=== PATIENT | male | born 1950 | race Caucasian/White ===

== ENCOUNTER 2016-12-16 12:47 | Inpatient (IN) | payer OTHER ==
[2016-12-16] MEDS ORDERED: TYLENOL ONE (13:24)
[2016-12-16] MEDS ORDERED: TYLENOL PO ONE (13:27)
[2016-12-16 13:45] LABS: MANUAL DIFF NEEDED? NO
[2016-12-16 13:48] LABS: BASO% 0.2 % (0.0-0.8); EOS# 0.04 X1000 (0.0-0.7); EOS% 0.4 % (0.0-10.0); HEMATOCRIT 42.4 % (42.0-52.0); HEMOGLOBIN 13.7 g/dL (14.0-18.0); IMM GRAN# 0.02 X1000 (0.0-0.04); IMM GRAN% 0.2 % (0.0-0.5); LYMPH# 0.81 X1000 (1.2-3.4); LYMPH% 8.6 % (20.5-51.1); MCH 28.8 PG (27-31); MCHC 32.3 g/dL (33-37); MCV 89.1 FL (81-99); MONO# 1.49 X1000 (0.11-0.59); MONO% 15.8 % (1.7-9.3); MPV 10.7 FL (7.4-10.4); NEUT% 74.8 % (42.2-75.2); PLT 198 X1000 (130-400); RBC 4.76 XMIL (4.7-6.1)
--- NOTE | 2016-12-16 14:00 | PROVIDER DOCUMENTATION ---
HPI-Respiratory General - General Chief Complaint: Anxiety Stated Complaint: SOB Time Seen by Provider: 12/16/16 14:00 Source: patient, family Allergies/Adverse Reactions: Patient Allergies Allergy/AdvReac Type Severity Reaction Status Date / Time latex Allergy RASH Verified 12/16/16 13:29 levofloxacin [From Levaquin] Allergy HIVES Verified 12/16/16 13:29 Home Medications: Home Medication List Medication Instructions Recorded Confirmed Last Taken Type Amiodarone HCl 200 mg PO DAILY 06/04/15 12/16/16 07/19/16 10:00 History Atorvastatin Calcium 40 mg PO DAILY 06/04/15 12/16/16 07/19/16 10:00 History Furosemide 40 mg PO BID 06/04/15 12/16/16 07/19/16 10:00 History Losartan [Cozaar] 50 mg PO DAILY 06/04/15 12/16/16 07/19/16 10:00 History Spironolactone 25 mg PO DAILY 06/04/15 12/16/16 07/19/16 10:00 History Warfarin Sodium 5 mg PO QHS 06/04/15 12/16/16 07/18/16 History Aspirin 81 mg PO DAILY 07/19/16 12/16/16 07/19/16 10:00 History Hydrocodone/Acetaminophen [[place] 1 each PO 4XDAY 07/19/16 12/16/16 Unknown History 10-325 Tablet] - History of Present Illness-Resp Nature of Presenting Problem: patient is a 66 y/o M that presents to the ER with shortness of breath, fever/ chills, and cough(productive) for about a week. He was seen by pcp 3 weeks ago and given antibiotics. patient was admitted in Jun 2016 for pneumonia. Quality of Pain: reports: pressure, tightness Severity in ED: reports: moderate, severe Onset/Duration: reports: gradual, 1 week ago Timing: reports: still present, constant Context: reports: multiple patients with similar complaints, recent URI Cough Quality/Degree: reports: moderate, severe, dry cough Episode Frequency: chronic episodes Current Respiratory Medication Therapy: Initiated see nurses note Modifying Factors: worse with: exertion, coughing Associated Symptoms: reports: cough, fever/chills, shortness of breath, short of breath, wheezing. denies: flu-like symptoms, lightheadedness, nasal congestion, nasal drainage Similar Symptoms Previously?: Yes Recently seen or treated by another doctor?: Yes Review of Systems - Adult - REVIEW OF SYSTEMS - ADULT Constitutional: reports: chills, fever Eyes: reports: no symptoms reported Ears, Nose, Mouth & Throat: denies: ear pain, sinus problem, throat pain Cardiovascular: denies: chest pain, palpitations Respiratory: reports: cough, shortness of breath, wheezing Gastrointestinal: denies: abdominal pain, diarrhea, difficulty swallowing, nausea, vomiting Genitourinary: reports: no symptoms reported Musculoskeletal: reports: no symptoms reported Integumentary: reports: no symptoms reported Neurological: reports: no symptoms reported Psychiatric: reports: no symptoms reported Endocrine: reports: no symptoms reported Hematologic/Lymphatic: reports: no symptoms reported Allergic/Immunologic: reports: no symptoms reported All Other Systems: Reviewed and Negative Past History - Adult - PAST MEDICAL HISTORY-ADULT Review of Records: reports: Medications Reviewed Cardiovascular: reports: cardiac disease, A-Fib, CHF, HTN, hyperlipidemia, AL, other (AAA) Respiratory: reports: COPD, sleep apnea Gastrointestinal: reports: GERD Other Conditions: reports: cataract/glaucoma - PRIOR SURGERIES/PROCEDURES Surgical/Procedure History: reports: CABG, cholecystectomy, hernia repair, joint replacement (total hip), other (AAA, carotid artery) - IMMUNIZATION STATUS Childhood Immunizations: See Nurse Assessment Flu Vaccine: See Nurse Assessment - SOCIAL HISTORY Smoking: cigarettes, less than 1 pack/day Living Situation: family Physical Exam-General - PHYSICAL EXAM-ADULT Initial Vital Signs Reviewed: Yes - CONSTITUTIONAL General Appearance: alert, mild distress, moderate distress - EYES Eyes: PERRL/EOMI, pink conjunctivae - HEAD, EARS, NOSE, MOUTH & THROAT HENMT: normocephalic/atraumatic, moist mucous membranes, normal ENT inspection - NECK Neck: full range of motion, normal inspection. negative: lymphadenopathy - RESPIRATORY Respiratory: decreased breath sounds, rales, rhonchi, other (tocophnea) - CARDIOVASCULAR Cardiovascular: regular rate, rhythm, no edema, no murmur - GASTROINTESTINAL (ABDOMEN) Abdominal Exam: normal bowel sounds, non tender, soft, no organomegaly, no pulsatile mass - MUSCULOSKELETAL Back Exam: normal inspection, no vertebral tenderness Extremity: no pedal edema, normal capillary refill, other (clubbing of fingers and toes) - SKIN Integumentary: normal color, diaphoresis - NEUROLOGIC Neurologic: grossly normal, no motor/sensory deficits - PSYCHIATRIC Psych/Mental Status: normal mood/affect, normal thought content, normal thought process, oriented x 3 Progress - PLAN OF CARE/RESULTS Progress/Plan/Lab Results: Vital Signs Temp Pulse Resp BP Pulse Ox 12/16/16 16:13 87 20 90/51 90 L 12/16/16 15:48 91 H 24 112/71 90 L 12/16/16 15:04 82 103/58 92 L 12/16/16 14:38 83 28 H 95/43 92 L 12/16/16 14:11 98.9 F 84 23 102/57 94 L 12/16/16 13:02 102.4 F H 98 H 22 112/61 90 L latex Allergy (Verified 12/16/16 13:29) RASH levofloxacin [From Levaquin] Allergy (Verified 12/16/16 13:29) HIVES Amiodarone HCl 200 mg PO DAILY 06/04/15 Atorvastatin Calcium 40 mg PO DAILY 06/04/15 Furosemide 40 mg PO BID 06/04/15 Losartan [Cozaar] 50 mg PO DAILY 06/04/15 Spironolactone 25 mg PO DAILY 06/04/15 Warfarin Sodium 5 mg PO QHS 06/04/15 Aspirin 81 mg PO DAILY 07/19/16 Hydrocodone/Acetaminophen [[place] 10-325 Tablet] 1 each PO 4XDAY 07/19/16 I&O 12/15/16 12/16/16 12/17/16 06:59 06:59 06:59 Output Total 35 Balance -35 Laboratory 12/16/16 12/16/16 12/16/16 14:33 13:41 12:20 WBC RBC Hgb Hct MCV MCH MCHC RDW Std Deviation Plt Count MPV Immature Gran % (Auto) Neut % (Auto) Lymph % (Auto) [place] % (Auto) Eos % (Auto) Baso % (Auto) Immature Gran # (Auto) Neut # (Auto) Lymph # (Auto) [place] # (Auto) Eos # (Auto) Baso # (Auto) PT INR PTT ([place] FS) Sodium Potassium Chloride Carbon Dioxide Anion Gap BUN Creatinine Estimated GFR/1.73 m2 BUN/Creatinine Ratio Glucose Calculated Osmolality Calcium Total Bilirubin AST ALT Alkaline Phosphatase Creatine Kinase Troponin T < 0.010 Total Protein Albumin Globulin Albumin/Globulin Ratio Plasma Lactate 0.9 Urine Source CLEAN CATCH Urine Color YELLOW Urine Turbidity CLEAR Urine pH 6.5 Ur Specific [place] 1.009 Urine Protein TRACE A Ur Glucose (Stick) NEGATIVE Ur Ketones (Stick) NEGATIVE Urine Blood NEGATIVE Urine Nitrite NEGATIVE Urine Bilirubin NEGATIVE Urobilinogen Dipstick NORMAL Urine Leukocytes NEGATIVE Urine WBC (Auto) <10 Urine RBC (Auto) <10 U Epithel Cells (Auto) <10 Urine Bacteria (Auto) NEGATIVE 12/16/16 12/16/16 12/16/16 12:20 12:20 12:20 WBC 9.43 RBC 4.76 Hgb 13.7 L Hct 42.4 MCV 89.1 MCH 28.8 MCHC 32.3 L RDW Std Deviation 15.1 H Plt Count 198 MPV 10.7 H Immature Gran % (Auto) 0.2 Neut % (Auto) 74.8 Lymph % (Auto) 8.6 L [place] % (Auto) 15.8 H Eos % (Auto) 0.4 Baso % (Auto) 0.2 Immature Gran # (Auto) 0.02 Neut # (Auto) 7.05 H Lymph # (Auto) 0.81 L [place] # (Auto) 1.49 H Eos # (Auto) 0.04 Baso # (Auto) 0.02 PT 27.9 H INR 2.61 PTT (Actin FS) 47.6 H Sodium 134 L Potassium 4.1 Chloride 93 L Carbon Dioxide 26 Anion Gap 15 BUN 19 Creatinine 1.2 Estimated GFR/1.73 m2 > 60 BUN/Creatinine Ratio 16 Glucose 100 Calculated Osmolality 271 Calcium 9.2 Total Bilirubin 0.95 AST 28 ALT 28 Alkaline Phosphatase 68 Creatine Kinase 57 Troponin T Total Protein 7.5 Albumin 3.6 Globulin 3.9 Albumin/Globulin Ratio 0.9 Plasma Lactate Urine Source Urine Color Urine Turbidity Urine pH Ur Specific [place] Urine Protein Ur Glucose (Stick) Ur Ketones (Stick) Urine Blood Urine Nitrite Urine Bilirubin Urobilinogen Dipstick Urine Leukocytes Urine WBC (Auto) Urine RBC (Auto) U Epithel Cells (Auto) Urine Bacteria (Auto) Orders Category Date Time Status Cardiac Monitoring DIRECTED Care 12/16/16 13:32 Active IV Insertion ORDERED Care 12/16/16 13:32 Active Notify MD of + Sepsis Screen NOW Care 12/16/16 13:32 Active CHEST-2 VIEWS [RAD] Stat Exams 12/16/16 13:32 Completed BLOOD CULTURE [BLDCUL] Stat Lab 12/16/16 14:03 Received CBC WITH DIFF [HEME] Stat Lab 12/16/16 12:20 Completed CK PROFILE [SP CHEM] Stat Lab 12/16/16 12:20 Completed COMPREHENSIVE METABOLIC PANEL [CHEM] Stat Lab 12/16/16 12:20 Completed LACTATE, PLASMA [CHEM] Stat Lab 12/16/16 14:33 Completed LACTATE, PLASMA [CHEM] Timed Lab 12/16/16 17:35 Ordered PROTIME WITH INR [COAG] Stat Lab 12/16/16 12:20 Completed PTT [COAG] Stat Lab 12/16/16 12:20 Completed TROPONIN T Stat Lab 12/16/16 12:20 Completed URINALYSIS W/POSS RFLX CULT [URINALYSIS] Stat Lab 12/16/16 13:41 Completed Acetaminophen [Tylenol] Med 12/16/16 13:24 Discontinued 1,000 mg .ROUTE .STK-MED ONE Acetaminophen [Tylenol] Med 12/16/16 13:27 Discontinued 1,000 mg PO NOW ONE Piperacil/Tazobact 3.375 gm/Ns [Zosyn 3.375 gm/Ns] 50 Med 12/16/16 14:23 Discontinued ml IV NOW Vancomycin 1 gm/Ns 250 ml Med 12/16/16 14:50 Discontinued IV ONCE Vancomycin 1 gm/Ns 250 ml Med 12/16/16 14:30 Ordered IV Q12H Oxygen Device Stat Oth 12/16/16 13:32 Active EKG [EKG] Stat Ther 12/16/16 13:11 Ordered hospitalist paged for admission - EKG 1 Time of EKG reading by physician:: 13:18 EKG Read and Signed by:: Benjamin Ragland EKG Interpretation (*Must complete 3 of following elements*): Abnormal Rate: 93 Rhythm: NSR [place]: normal QRS: RBB [place] Interval: normal ST Wave: normal Comments: LAE - XRAY 1 XRAY Study: Chest Impression: Abnormal XRAY Interpretation: RLL pneumonia - CONSULTS/PCP/HOSPITALIST Notification #1 *Consult/PCP/Hospitalist*: ( hospitalist) Time Discussed: 16:27 Departure - Departure Time of Disposition Order: 16:27 DIAGNOSIS: COPD exacerbation RLL pneumonia Qualifiers: Pneumonia type: due to unspecified organism Qualified Code(s): J18.1 - Lobar pneumonia, unspecified organism Fever Qualifiers: Fever type: unspecified Qualified Code(s): R50.9 - Fever, unspecified Disposition: ADMITTED INPATIENT 09 Certified Medical Emergency: Emergent Condition: Stable Attestation - Scribe Verification/Attestation Scribe:: Mateus Hills Acting as Scribe for:: Benjamin Ragland Scribe documention review:: This chart was documented by a scribe and accurately reflects the service the provider performed and the decisions made by the provider. Physician Attestation - Physician Attestation I, the provider, attest to the following statement:: Benjamin Ragland Physician documentation Attestation:: This documentation recorded by the scribe accurately reflects the service I personally performed and the decisions made by me.
[2016-12-16] MEDS ORDERED: ZOSYN 3.375 GM/NS 50 ML IV ONE (14:23)
[2016-12-16 14:25] LABS: AGAP 15; ALBUMIN 3.6 g/dL (3.5-5.0); ALKALINE PHOSPHATASE 68 U/L (32-122); BUN 19 mg/dL (8-22); CALCIUM 9.2 mg/dL (8.8-10.2); CHLORIDE 93 mmol/L (98-107); CK PROFILE 57 U/L (24-204); COSMO 271; GOT 28 U/L (10-34); GPT 28 U/L (10-44); POTASSIUM 4.1 mmol/L (3.5-5.1); SODIUM 134 mmol/L (136-145); TCO2 26 mmol/L (25-35); TOTAL BILIRUBIN 0.95 mg/dL (0.20-1.00); TOTAL PROTEIN 7.5 g/dL (6.3-8.3)
[2016-12-16 14:28] LABS: INR 2.61; PROTIME 27.9 Seconds (9.2-11.7); PTT 47.6 Seconds (22.0-36.0)
[2016-12-16] MEDS ORDERED: VANCOMYCIN 1 GM/NS 250 ML IV SCH (14:30)
--- NOTE | 2016-12-16 14:40 | Diag Imaging Result Document ---
PROCEDURE NAME: CHEST-2 VIEWS - 12/16/2016 TWO VIEWS OF THE CHEST: FINDINGS: There are sternotomy wires. There is blunting of the costophrenic angles posteriorly and laterally on the right. There is increased alveolar opacity in the right lower lobe compared to the previous study of 08/14/2016. IMPRESSION: Worsened pneumonia superimposed on COPD and fibrosis.
[2016-12-16 14:46] LABS: URINE CULTURE NEEDED? NO; URINE MICRO REVIEW NEEDED? NO; URINE SOURCE CLEAN CATCH
[2016-12-16] MEDS ORDERED: VANCOMYCIN 1 GM/NS 250 ML IV ONE ×2 (14:50→18:30)
[2016-12-16 14:52] LABS: BILIRUBIN URINE NEGATIVE (NEGATIVE); BLOOD URINE NEGATIVE (NEGATIVE); COLOR YELLOW; GLUCOSE URINE NEGATIVE (NEGATIVE); LEUKOCYTES URINE NEGATIVE (NEGATIVE); NITRITE URINE NEGATIVE (NEGATIVE); PH URINE 6.5; PROTEIN URINE TRACE mg/dL (NEGATIVE); SP GRAVITY URINE 1.009; TURBIDITY URINE CLEAR (CLEAR); UROBILINOGEN URINE NORMAL (NORMAL)
[2016-12-16 14:53] LABS: UR EPITHELIAL CELLS <10 /HPF (<10); URINE BACTERIA NEGATIVE /HPF; URINE RBC <10 /HPF (<10); URINE WBC <10 /HPF (<10)
[2016-12-16] MEDS ORDERED: ZOFRAN IV PRN (16:44)
[2016-12-16] MEDS ORDERED: TYLENOL PO PRN (16:44)
[2016-12-16] MEDS ORDERED: NS 1,000 ML IV SCH (16:45)
[2016-12-16] MEDS ORDERED: TESSALON PO PRN (16:50)
[2016-12-16] MEDS ORDERED: VANCOMYCIN IV PER PHARMACY MISC SCH (17:00)
[2016-12-16] MEDS ORDERED: NORCO-10 PO SCH (17:00)
[2016-12-16] MEDS ORDERED: MUCOMYST 20% ONE (19:02)
[2016-12-16] MEDS ORDERED: DUONEB (A & A) ONE (19:03)
[2016-12-16] MEDS: MUCOMYST 20% INH SCH (19:30)
[2016-12-16] MEDS: DUONEB (A & A) INH SCH ×2 (19:30→22:44)
[2016-12-16] MEDS: ZOSYN 3.375 GM/NS 50 ML IV SCH (20:33)
--- NOTE | 2016-12-16 20:45 | HISTORY AND PHYSICAL ---
PRIMARY CARE PHYSICIAN: Dr. Rick Jeffery. CHIEF COMPLAINT: Five days of increasing shortness of breath and fever. HISTORY OF PRESENT ILLNESS: Mr. Dumont is a 66-year-old male with a history of COPD, coronary artery disease status post coronary artery bypass graft, atrial fibrillation, chronic diastolic CHF and diabetes mellitus type 2 who presented to the ER today with a chief complaint of fever, chills, increasing shortness of breath and productive cough. The patient reports that over the last week or so he has been feeling very weak and fatigued. The patient reports that he had similar symptoms about 3 weeks ago at which time he saw his primary care physician, Dr. Rick Jeffery and was treated with an oral antibiotic and a steroid injection. The patient states that he felt better for a few days, but then the symptoms returned. The patient denied having any chest pain, headache, dizziness or syncope. The patient reports a productive cough with greenish colored sputum. The patient states that he has also noticed that minimal exertion makes him feel short of breath. The patient states that he used his inhaler for shortness of breath, but that did not help to resolve his symptoms. He has also been taking Coricidin and [id number] cold medicine. He reports that he did receive his flu shot. The patient is not on any inhalers or bronchodilator therapy at home. In the ER, the patient was noted to be febrile with a temperature of a 102.4 degrees, and his O2 saturation was 90% on 3 L nasal cannula upon arrival. A chest x- ray was done that revealed a right lobe pneumonia. While in the ER, the patient had blood cultures done and a sputum Gram stain and culture done. The patient then received a dose of IV vancomycin and Zosyn. PAST MEDICAL HISTORY: 1. COPD. 2. Hypertension. 3. Chronic diastolic congestive heart failure. 4. Atrial fibrillation. 5. Diabetes mellitus type 2. 6. Chronic mesenteric ischemia. 7. Coronary artery disease status post coronary artery bypass graft. 8. Peripheral vascular disease. PAST SURGICAL HISTORY: 1. Cholecystectomy. 2. Umbilical hernia repair. 3. Bilateral hip surgery. 4. Left carotid endarterectomy. 5. Aortofemoral bypass. 6. CABG. FAMILY HISTORY: The patient's mother and father both had coronary artery disease. The patient's father at the age of 76. The patient's mother at the age of 55. ALLERGIES: Latex and Levaquin which cause a rash. SOCIAL HISTORY: The patient is and lives at home with his . The patient states that he does smoke 1 pack a day of cigarettes and has been doing this for 50+ years. He denies any alcohol usage. HOME MEDICATIONS: 1. Warfarin 5 mg p.o. at bedtime. 2. Aldactone 25 mg p.o. daily. 3. Cozaar 50 mg p.o. daily. 4. [place] 10/325, 1 tab oral 4 times a day. 5. Lasix 40 mg p.o. twice a day. 6. Lipitor 40 mg p.o. at bedtime. 7. Aspirin 81 mg p.o. daily. 8. Amiodarone 200 mg p.o. daily. REVIEW OF SYSTEMS: A 12 point review of systems has been done. Please refer to the history of present illness for pertinent positives and negatives. PHYSICAL EXAMINATION: VITAL SIGNS: Temperature 102.4 degrees, blood pressure 112/61, heart rate 98. Respirations 22. O2 saturations 90% on 3 L nasal cannula. GENERAL: This is an elderly male, lying comfortably on the stretcher in no acute distress. HEAD: Normocephalic, atraumatic. Eyes, conjunctivae clear, EOMI, PERRLA. NECK: Supple no JVD. No lymphadenopathy. LUNGS: Coarse breath sounds on the right. Clear to auscultation on the left, no wheezing. No rales. ABDOMEN: Positive bowel sounds. Soft, nontender, nondistended. HEART: S1, S2 normal. Regular rate and rhythm. EXTREMITIES: No edema. No cyanosis. No calf tenderness. Peripheral pulses palpable. NEUROLOGIC: The patient is alert and oriented x3. No focal neurologic deficits noted. LABORATORY: White blood cell count 9.4, hemoglobin 13, hematocrit 42, platelets 198,000. INR 2.6. Sodium 134, potassium 4.1, chloride 93, CO2 26, BUN is 19, creatinine 1.2, glucose 100, albumin 3.6, AST 28. ALT 28. Alkaline phosphatase 68. Troponin less than 0.01. UA negative. IMAGING: Chest x-ray shows a right lower lobe pneumonia. ASSESSMENT AND PLAN: 1. Right lobe pneumonia. We will order blood cultures times 2 plus sputum Gram stain and culture. The patient will be started on broad-spectrum antibiotics plus bronchodilator therapy and incentive spirometry. We will also consult Infectious Disease for further recommendations. We will also order a modified barium swallow to be sure that the patient is not aspirating. 2. Atrial fibrillation. The patient is currently rate controlled. We will continue on warfarin. The patient's International normalized ratio is therapeutic. 3. Hypertension. The patient is on several antihypertensives at this time. Those will be held. 4. Diabetes mellitus type 2. We will start the patient on sliding scale insulin. 5. Dyslipidemia. Continue on Lipitor. 6. Coronary artery disease status post coronary artery bypass graft. Stable. Continue on aspirin, Lipitor and Cozaar. 7. Deep vein thrombosis prophylaxis. The patient is already on warfarin and his international normalized ratio is therapeutic. 8. The plan of care was discussed with the patient and his at the bedside.
[2016-12-16] MEDS ORDERED: LASIX PO SCH (21:00)
[2016-12-16] MEDS: LIPITOR PO SCH (21:57)
[2016-12-16] MEDS ORDERED: CORDARONE PO ONE (22:16)
[2016-12-16] MEDS: COUMADIN PO SCH (22:30)
[2016-12-16] MEDS: NORCO-10 PO PRN (22:30)
--- NOTE | 2016-12-16 22:59 | Diag Imaging Result Document ---
PROCEDURE NAME: CT THORAX W/O CONTRAST - 12/16/2016 STUDY: CT chest without contrast. COMPARISON: Compared to 08/20/2016. There are prominent calcified pleural plaques on the right. These were present on the prior exam. Trace left effusion versus pleural thickening. The heart is not enlarged. Sternal wires are present. Moderate prominent atherosclerosis. No aneurysmal dilatation to the aorta. There is central vascular prominence and there may be underlying prominent hilar lymph nodes. Mildly enlarged mediastinal lymph nodes. There are several calcified lymph nodes in the right hilum and there are scattered calcified granuloma. There are bilateral infiltrates most pronounced in the right upper and lower lobes. [id number] emphysematous changes are similar to the prior study. IMPRESSION: Development of multifocal bilateral pneumonia with pulmonary edema. A preliminary report was given at 9:13 p.m. MTDD
[2016-12-17] MEDS: DUONEB (A & A) INH SCH ×6 (03:36→23:25)
[2016-12-17 05:22] LABS: ALLEN TEST YES; BE 2.1 mmoll (-3.0-3.0); BLOOD TYPE ARTERIAL; DRAW SITE R RADIAL; METHB 1.5 % (0.0-1.5); O2(CT) 16.1 mL/dL (15.0-23.0); PO2(98.6) 60 mmHg (60-100); SAMPLE BLOOD; SAO2 93.3 % (95.0-100.0); THB 12.8 g/dL (11.5-17.4); pH(98.6) 7.35 (7.35-7.45)
--- NOTE | 2016-12-17 05:23 | EKG Report ---
Test Performed on : 12/16/2016 1:18:49 PM Test Reason : SOB Blood Pressure : / mmHG Vent. Rate : 093 BPM Atrial Rate : 093 BPM P-R Int : 174 ms QRS Dur : 146 ms QT Int : 386 ms P-R-T Axes : 045 108 029 degrees QTc Int : 479 ms Normal sinus rhythm. Possible Left atrial enlargement Right bundle branch block Abnormal ECG When compared with ECG of 18-FEB-2016 06:20, Sinus rhythm. has replaced Atrial fibrillation. Unconfirmed Result
[2016-12-17 05:24] LABS: MODALITY CANNULA
[2016-12-17 05:25] LABS: PCO2(98.6) 52 mmHg (35-45)
[2016-12-17] MEDS: ZOSYN 3.375 GM/NS 50 ML IV SCH ×4 (05:59→23:36)
[2016-12-17 06:49] LABS: MANUAL DIFF NEEDED? NO
[2016-12-17 06:56] LABS: BASO% 0.3 % (0.0-0.8); EOS# 0.07 X1000 (0.0-0.7); EOS% 0.9 % (0.0-10.0); HEMOGLOBIN 12.8 g/dL (14.0-18.0); LYMPH# 0.85 X1000 (1.2-3.4); LYMPH% 11.5 % (20.5-51.1); MCH 28.9 PG (27-31); MCV 90.3 FL (81-99); MONO# 1.25 X1000 (0.11-0.59); MONO% 16.9 % (1.7-9.3); MPV 9.9 FL (7.4-10.4); NEUT% 70.4 % (42.2-75.2); PLT 165 X1000 (130-400); RBC 4.43 XMIL (4.7-6.1)
[2016-12-17 07:19] LABS: POTASSIUM 4.8 mmol/L (3.5-5.1)
[2016-12-17 07:25] LABS: INR 2.46; PROTIME 26.3 Seconds (9.2-11.7)
[2016-12-17] MEDS: LASIX IV SCH ×2 (07:39→20:54)
[2016-12-17] MEDS: MUCOMYST 20% INH SCH ×2 (07:46→19:25)
[2016-12-17] MEDS ORDERED: NS 2,000 ML ONE (08:55)
[2016-12-17] MEDS ORDERED: HEPARIN ONE (08:55)
[2016-12-17] MEDS ORDERED: COZAAR PO SCH (09:00)
[2016-12-17] MEDS ORDERED: ALDACTONE PO SCH (09:00)
[2016-12-17] MEDS: NORCO-10 PO PRN ×3 (11:00→21:41)
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
--- NOTE | 2016-12-17 13:08 | Diag Imaging Result Document ---
PROCEDURE NAME: BA SWALLOW W/VIDEO SPEECH THER - 12/17/2016 MODIFIED BARIUM SWALLOW WITH THE SPEECH THERAPIST. TECHNIQUE: One hundred and thirty films submitted. Fluoroscopy time is 34 seconds. Total dose is 88 mGy. FINDINGS: The patient swallowed thin barium and barium mixed with pudding without difficulty. No aspiration occurred during the exam. Normal primary and secondary peristalsis. Normal relaxation at the GE junction. There are at least moderate degenerative changes in the mid and lower cervical spine. Mild delay in relaxation of the cricopharyngeus muscle. No other abnormality identified. [facility]
[2016-12-17] MEDS: ASPIRIN PO SCH (14:05)
[2016-12-17] MEDS: CORDARONE PO SCH (14:05)
--- NOTE | 2016-12-17 14:53 | PROGRESS NOTE ---
DATE: 12/17/2016 SUBJECTIVE: The patient is sitting at the edge of the bed, eating a snack. He does report a productive cough but otherwise states that he feels okay. OBJECTIVE: Vital Signs: Temperature 98.2 degrees, blood pressure 129/64, heart rate 93, respirations 23. O2 saturations 93% on 3 L nasal cannula. General: This is an elderly male, sitting at the edge of the bed, in no acute distress. HEENT: Head normocephalic, atraumatic. Heart: S1, S2 normal. Regular rate and rhythm. Lungs: Clear to auscultation. No wheezing. No rale. No rhonchi. Abdomen: Positive bowel sounds. Soft, nontender, nondistended. Extremities: No edema. No cyanosis. No calf tenderness. Neurologic: The patient is alert and oriented x3. LABS: White blood cell count 7.4, hemoglobin 12, hematocrit 40, platelets 165,000. INR 2.4. Sodium 139, potassium 4.8, chloride 97, CO2 29. BUN 19, creatinine 1.3. Glucose 105. ASSESSMENT AND PLAN: 1. Bilateral lobe pneumonia. Continue on Zosyn and vancomycin. Infectious Disease is following. 2. Atrial fibrillation. The patient is currently rate controlled. Continue on amiodarone and warfarin. 3. Hypertension. Controlled. 4. Diabetes mellitus type 2. Continue on sliding scale insulin plus a diabetic diet. 5. Chronic diastolic congestive heart failure. Continue on Lasix. 6. Coronary artery disease, status post coronary artery bypass graft. Aware. Continue on aspirin. 7. Gastrointestinal prophylaxis. Will start the patient on Protonix.
[2016-12-17] MEDS: VANCOMYCIN 1,750 MG in NS 250 ML IV SCH (20:54)
[2016-12-17] MEDS: COUMADIN PO SCH (20:54)
[2016-12-17] MEDS: LIPITOR PO SCH (20:55)
[2016-12-18] MEDS: DUONEB (A & A) INH SCH ×6 (03:15→23:11)
[2016-12-18] MEDS: ZOSYN 3.375 GM/NS 50 ML IV SCH ×3 (06:57→18:19)
[2016-12-18] MEDS: PROTONIX PO SCH (06:58)
[2016-12-18 07:11] LABS: MANUAL DIFF NEEDED? NO
[2016-12-18] MEDS: MUCOMYST 20% INH SCH ×2 (07:20→19:14)
--- NOTE | 2016-12-18 07:39 | Diag Imaging Result Document ---
PROCEDURE NAME: CHEST-PORTABLE - 12/18/2016 ERECT AP PORTABLE CHEST, 12/18/2016 AT 0545 HOURS: FINDINGS: There is pleural thickening and fibrosis bilaterally. There is still some increase in opacity of the right lower lobe and left upper lobe compared to 08/14/2016, however much of the opacity in both lungs is probably due to fibrosis. Compared to 12/16/2016, the lungs are better expanded and there is some slight increase in the density in the left upper lobe but otherwise there has been no significant change. IMPRESSION: Persistent pulmonary edema or pneumonia superimposed on pulmonary and pleural fibrosis.
[2016-12-18 07:48] LABS: INR 2.87; PROTIME 30.7 Seconds (9.2-11.7)
[2016-12-18 07:52] LABS: BASO% 0.3 % (0.0-0.8); EOS# 0.26 X1000 (0.0-0.7); EOS% 3.4 % (0.0-10.0); HEMATOCRIT 39.6 % (42.0-52.0); HEMOGLOBIN 12.8 g/dL (14.0-18.0); IMM GRAN# 0.03 X1000 (0.0-0.04); IMM GRAN% 0.4 % (0.0-0.5); LYMPH# 0.66 X1000 (1.2-3.4); LYMPH% 8.6 % (20.5-51.1); MCH 28.8 PG (27-31); MCHC 32.3 g/dL (33-37); MONO# 1.19 X1000 (0.11-0.59); MONO% 15.4 % (1.7-9.3); MPV 10.3 FL (7.4-10.4); NEUT% 71.9 % (42.2-75.2); PLT 189 X1000 (130-400); RBC 4.45 XMIL (4.7-6.1)
[2016-12-18 08:05] LABS: AGAP 14; BUN 16 mg/dL (8-22); CALCIUM 8.9 mg/dL (8.8-10.2); CHLORIDE 95 mmol/L (98-107); COSMO 275; POTASSIUM 3.5 mmol/L (3.5-5.1); SODIUM 137 mmol/L (136-145); TCO2 28 mmol/L (25-35)
--- NOTE | 2016-12-18 09:35 | PROGRESS NOTE ---
DATE: 12/18/2016 PRESENT ILLNESS: The patient is admitted to the hospital with pneumonia. MEDICATIONS: The patient currently is on a combination of vancomycin and Zosyn. PHYSICAL EXAMINATION: Vital Signs: Temperature is 98.1 degrees, pulse 84, respirations 22, blood pressure 130/68. General: This is an ill-appearing, elderly male. He does seem to be in a little bit of respiratory distress. Lungs: Clear to auscultation. Cardiovascular: Regular heart rate. Abdomen: Soft and nontender. LAB AND X-RAY STUDIES: There is no new CBC or BMP for today. Patient's immunoglobulin A and immunoglobulin G levels are within normal limits. A barium swallow done yesterday showed no evidence of aspiration. ASSESSMENT AND PLAN: The patient has chronic obstructive pulmonary disease and is admitted with pneumonia, which is predisposed to by his chronic obstructive pulmonary disease. He does not aspirate any he does not have an immune deficiency. My plan would be to continue with his current antibiotics, namely vancomycin and Zosyn pending culture results. COMORBIDITIES: Consist of chronic obstructive pulmonary disease and mesenteric ischemia. Thank you for the consult.
[2016-12-18] MEDS: LASIX IV SCH ×2 (09:43→20:54)
[2016-12-18] MEDS: NORCO-10 PO PRN ×3 (09:44→20:53)
[2016-12-18] MEDS: ASPIRIN PO SCH (09:44)
[2016-12-18] MEDS: CORDARONE PO SCH (09:44)
[2016-12-18] MEDS ORDERED: SORBITOL PO ONE (13:07)
[2016-12-18] MEDS: TESSALON PO SCH ×2 (15:28→18:19)
--- NOTE | 2016-12-18 16:48 | PROGRESS NOTE ---
DATE: 12/18/2016 SUBJECTIVE: The patient complains of constipation and persistent coughing. OBJECTIVE: Vital Signs: Temperature 97.9 degrees, blood pressure 138/66, heart rate 79, respirations 20, O2 saturations 98% on 3 L nasal cannula. General: This is an elderly male, lying in bed, in no acute distress. Head: Normocephalic atraumatic. Heart: S1, S2. Normal. Regular rate and rhythm. Lungs: Clear to auscultation bilaterally. No crackles. No rales. Abdomen: Positive bowel sounds. Soft, nontender, nondistended. Extremities: No edema. No cyanosis. Neurologic: The patient is alert and oriented x3. LABS: White blood cell count 7.7, hemoglobin 12, hematocrit 39, platelets 189,000. INR 2.8. Potassium 3.5, sodium 137, BUN 16, creatinine 1.1, glucose 105, calcium 8.9. ASSESSMENT AND PLAN: 1. Bilateral lobe pneumonia. Continue on Zosyn and vancomycin. 2. Atrial fibrillation. The patient is rate controlled. Continue on amiodarone and warfarin. The patient's INR is therapeutic. 3. Constipation. Will start the patient on scheduled laxatives. 4. Hypertension. Controlled. 5. Diabetes mellitus type 2. Continue on sliding scale insulin. 6. Chronic diastolic congestive heart failure. Stable. Continue on Lasix. 7. Coronary artery disease status post coronary artery bypass graft. Aware. Continue on aspirin. 8. Gastrointestinal prophylaxis. Continue on Protonix. 9. Will consult physical therapy.
[2016-12-18] MEDS: VANCOMYCIN 1,750 MG in NS 250 ML IV SCH (20:53)
[2016-12-18] MEDS: LACTULOSE PO SCH (20:53)
[2016-12-18] MEDS: LIPITOR PO SCH (20:53)
[2016-12-18] MEDS: MIRALAX PO SCH (20:54)
[2016-12-18] MEDS: COUMADIN PO SCH (20:54)
[2016-12-18] MEDS: TUSSIONEX LIQUID PO SCH (20:58)
[2016-12-18] MEDS ORDERED: MELATONIN PO ONE (22:25)
[2016-12-19] MEDS: ZOSYN 3.375 GM/NS 50 ML IV SCH ×4 (01:53→20:03)
[2016-12-19] MEDS: DUONEB (A & A) INH SCH ×6 (03:03→23:10)
[2016-12-19] MEDS: NORCO-10 PO PRN (03:07)
[2016-12-19] MEDS: PROTONIX PO SCH (06:26)
[2016-12-19 06:31] LABS: MANUAL DIFF NEEDED? NO
[2016-12-19 06:51] LABS: INR 2.98; PROTIME 31.9 Seconds (9.2-11.7)
[2016-12-19 06:57] LABS: AGAP 13; BUN 18 mg/dL (8-22); CALCIUM 9.3 mg/dL (8.8-10.2); CHLORIDE 95 mmol/L (98-107); COSMO 277; POTASSIUM 3.7 mmol/L (3.5-5.1); SODIUM 137 mmol/L (136-145); TCO2 29 mmol/L (25-35)
[2016-12-19 07:01] LABS: BASO% 0.2 % (0.0-0.8); EOS# 0.33 X1000 (0.0-0.7); EOS% 4.1 % (0.0-10.0); HEMATOCRIT 44.1 % (42.0-52.0); HEMOGLOBIN 14.1 g/dL (14.0-18.0); LYMPH# 0.61 X1000 (1.2-3.4); LYMPH% 7.6 % (20.5-51.1); MCH 28.4 PG (27-31); MCV 88.9 FL (81-99); MONO# 1.09 X1000 (0.11-0.59); MONO% 13.6 % (1.7-9.3); MPV 10.5 FL (7.4-10.4); NEUT% 74.5 % (42.2-75.2); PLT 238 X1000 (130-400); RBC 4.96 XMIL (4.7-6.1)
[2016-12-19] MEDS: MUCOMYST 20% INH SCH ×2 (07:28→19:44)
[2016-12-19] MEDS: ASPIRIN PO SCH (09:32)
[2016-12-19] MEDS: CORDARONE PO SCH (09:32)
[2016-12-19] MEDS: MIRALAX PO SCH (09:33)
[2016-12-19] MEDS: LACTULOSE PO SCH (09:33)
[2016-12-19] MEDS: TUSSIONEX LIQUID PO SCH (09:33)
[2016-12-19] MEDS: LASIX IV SCH (09:33)
[2016-12-19] MEDS: TESSALON PO SCH (09:33)
--- NOTE | 2016-12-19 10:51 | PROGRESS NOTE ---
DATE: 12/19/2016 PRESENT ILLNESS: The patient is being treated for pneumonia. The patient has developed a swollen abdomen which especially is noticeable this morning. MEDICATIONS: The patient is on vancomycin and Zosyn. PHYSICAL EXAMINATION: Vital Signs: Temperature is 97.6 degrees, pulse 102, respirations 24, blood pressure 138/58. Generally: This is an ill-appearing, elderly male. He is in no acute distress. Lungs: Clear to auscultation. Cardiovascular: Regular heart rate. Abdomen: Swollen. It is not tender. I did not hear any breath sounds. Rectal: I did a digital rectal exam. I did not feel any type of mass or stool impaction. LAB AND X-RAY: CBC today shows a white count of 8040, hemoglobin 14.1, and platelet count 238,000. Creatinine is 1.2. GFR is greater than 60. Sputum is growing a normal varinder. ASSESSMENT AND PLAN: I discussed the patient's case with Dr. Ridley who previously had operated on the patient for bowel obstruction. He looked at the x-ray of the abdomen that had just been done and I told him that I was going to consult him. He wants to have a NG tube put down to low intermittent suction. I discussed this with the patient and his and they are in agreement with the above plan. Hopefully the patient's apparent bowel obstruction will resolve with NG suction. COMORBIDITIES: He has severe COPD. Also, he has had previous operations on his abdomen and he has a lot of adhesions that have formed and possibly the patient's apparent obstruction may be due to one of those adhesions and may require surgery. [facility]
--- NOTE | 2016-12-19 11:33 | Diag Imaging Result Document ---
PROCEDURE NAME: ABDOMEN FLAT/UPRIGHT - 12/19/2016 FLAT AND UPRIGHT RADIOGRAPH OF THE ABDOMEN: COMPARISON: 07/21/2016. FINDINGS: There is a large amount of stool in the colon suggesting fairly severe constipation. There is nothing specific for obstruction. There are nonspecific bowel gas patterns. No large- volume free abdominal gas can be identified. IMPRESSION: Suggestion of fairly significant constipation. Nonspecific abdomen, otherwise.
[2016-12-19] MEDS: DILAUDID IV PRN ×4 (11:56→21:23)
[2016-12-19] MEDS: NS 1,000 ML IV SCH (12:00)
--- NOTE | 2016-12-19 13:02 | CONSULTATION ---
DATE OF CONSULTATION: 12/19/2016 REQUESTING PHYSICIAN/REASON FOR CONSULTATION: Elijah Del Valle MD, consult concerning possible small bowel obstruction versus constipation. HISTORY OF PRESENT ILLNESS: A 66-year-old male, well known to me with a history of COPD, coronary artery disease, atrial fibrillation, chronic diastolic congestive heart failure, diabetes mellitus type 2, and now with pneumonia. I had seen him last year for a small bowel obstruction, which ultimately required exploratory laparotomy. He said in the last couple of days, he has become more distended and has not had a bowel movement. He does have a history of chronic constipation, but it usually resolves on its own. His last bowel movement was recorded yesterday, last passing of gas was at that time too. He denies any abdominal pain, but does feel bloated. He is currently being treated for pneumonia. I was asked to evaluate the patient for opinion. PAST MEDICAL HISTORY: Includes COPD, hypertension, chronic diastolic congestive heart failure, atrial fibrillation, diabetes mellitus, chronic mesenteric ischemia, coronary artery disease, peripheral vascular disease. PAST SURGICAL HISTORY: Includes previous exploratory laparotomy, cholecystectomy, umbilical hernia repair, bilateral hip surgery, left carotid endarterectomy, aortofemoral bypass, coronary artery bypass graft. FAMILY HISTORY: Both parents had coronary artery disease. ALLERGIES: Latex and Levaquin. SOCIAL HISTORY: , smokes 1 pack per day. Denies alcohol. HOME MEDICATIONS: Include Coumadin, Aldactone, Cozaar, Ransom, Lasix, Lipitor, aspirin, and amiodarone. REVIEW OF SYSTEMS: A full 10-point review of systems is obtained and negative except those specified in the HPI. PHYSICAL EXAMINATION: Vital Signs: The patient is currently afebrile. Temperature 97.6 degrees, pulse is 98, respiratory rate 18, and O2 saturation 94% on 2 liters nasal cannula. General: No acute distress. An alert and interactive male who looks his stated age. HEENT: Normocephalic, atraumatic. Pupils are round, react to light. Mucous membranes moist. Oropharynx benign. Neck: Supple. Trachea midline. Cardiovascular: Regular rate and rhythm. Lungs: Grossly clear. Abdomen: Distended, but soft. Tympanic to percussion. Bowel sounds auscultated. Extremities: Moves all extremities. Neurologic: Grossly intact. Skin: No signs of jaundice. Vascular: All extremities perfused. LABORATORY DATA: Reviewed, white blood cell count within normal limits, hematocrit within normal limits. Electrolytes all appear grossly within normal limits. Abdominal film reviewed, and this appears to be a bowel obstruction versus constipation. ASSESSMENT AND PLAN: A 66-year-old male with recurrent pneumonia and possible bowel obstruction versus constipation. 1. Pneumonia, currently being managed by the primary team. 2. Multiple medical comorbidities, currently being managed by the consultants. 3. Small bowel obstruction versus constipation. At this time, we will place a nasogastric tube. We may try more laxatives or enemas in the next 24 hours if the patient does not seem to improve. At this time, I would like to hold off on any surgical intervention, and we will monitor the patient with you very closely. I appreciate the consultation.
--- NOTE | 2016-12-19 13:26 | Diag Imaging Result Document ---
PROCEDURE NAME: CHEST/ABD TUBE PLACEMENT - 12/19/2016 AP PORTABLE CHEST AND ABDOMEN: INDICATION: For NG tube placement. FINDINGS: There is considerable motion. However, the NG tube tip is probably located at the level of the gastric cardia. IMPRESSION: Suboptimal study. NG tube probably just within the abdomen.
--- NOTE | 2016-12-19 14:33 | Diag Imaging Result Document ---
PROCEDURE NAME: CHEST/ABD TUBE PLACEMENT - 12/19/2016 PORTABLE CHEST AND ABDOMEN: REASON FOR STUDY: NG tube placement. TIME: 1400 hours. FINDINGS: The NG tube is clearly within the abdomen, probably in the fundus of the stomach. IMPRESSION: NG tube in stomach.
--- NOTE | 2016-12-19 15:09 | PROGRESS NOTE ---
DATE: 12/19/2016 SUBJECTIVE: The patient states that he still has not been able to have a bowel movement and has some abdominal discomfort overnight. OBJECTIVE: Vital Signs: Temperature 98.1 degrees, blood pressure 129/67, heart rate 89, respirations 21, and O2 saturations 94% on 2 liters nasal cannula. General: This is an elderly male, lying in bed, in no acute distress. Head: Normocephalic, atraumatic. Heart: S1 and S2, normal. Regular rate and rhythm. Lungs: Clear to auscultation bilaterally. No wheezes, no rales. No rhonchi. Abdomen: Positive bowel sounds. Soft, nontender, nondistended. Extremities: No edema. No cyanosis. No calf tenderness. Neurologic: The patient is alert oriented x3. No focal neurologic deficits noted. LABORATORY DATA: White blood cell count of 8, hemoglobin 14, hematocrit 44, platelets 238,000. INR 2.9. Sodium 137, potassium 3.7, chloride 95, CO2 of 29, BUN 18, creatinine 1.2, glucose 114, calcium 9.3. ASSESSMENT AND PLAN: 1. Pneumonia. Continue on the current intravenous antibiotic regimen as recommend by Dr. Del Valle. The patient has been advised to continue with incentive spirometer. 2. Severe constipation versus a small bowel obstruction. The patient will be assessed by the general surgeon. A nasogastric tube has already been ordered by Dr. Del Valle. We will order an abdominal x-ray to be done tomorrow morning. 3. Atrial fibrillation. The patient is currently rate controlled. The patient's international normalized ratio is therapeutic. 4. Chronic diastolic congestive heart failure, stable. 5. Diabetes mellitus type 2. Continue on sliding scale insulin. 6. Gastrointestinal prophylaxis. Continue on Protonix.
[2016-12-19] MEDS: VANCOMYCIN 1,750 MG in NS 250 ML IV SCH (20:05)
[2016-12-19] MEDS: COUMADIN PO SCH ×2 (20:08→20:09)
[2016-12-20] MEDS: DILAUDID IV PRN ×6 (01:12→23:46)
[2016-12-20] MEDS: ZOSYN 3.375 GM/NS 50 ML IV SCH ×4 (01:50→20:23)
[2016-12-20] MEDS: DUONEB (A & A) INH SCH ×6 (03:41→23:26)
[2016-12-20] MEDS: NS 1,000 ML IV SCH ×2 (04:20→17:08)
[2016-12-20 07:19] LABS: INR 3.21; PROTIME 34.4 Seconds (9.2-11.7)
[2016-12-20] MEDS: MUCOMYST 20% INH SCH ×2 (07:27→19:59)
[2016-12-20 07:31] LABS: CALCIUM 9.6 mg/dL (8.8-10.2); POTASSIUM 4.1 mmol/L (3.5-5.1)
--- NOTE | 2016-12-20 07:37 | PROGRESS NOTE ---
DATE: 12/20/2016 SUBJECTIVE: Patient doing about the same. His abdominal distention appears to be slightly improved. He had NG tube placed yesterday. Otherwise, no new issues. OBJECTIVE: Vital Signs: Patient is currently afebrile. His vital signs have been stable. General: No acute distress. Alert, interactive male looks stated age. HEENT: Normocephalic, atraumatic. Pupils equal, round, and reactive to light. Mucous membranes moist. Oropharynx benign. NG tube in place with gastric contents draining. Neck: Supple. Trachea midline. Cardiovascular: Regular rate and rhythm. Lungs: Grossly clear. Abdomen: Less distended than yesterday. Soft, nontender. Extremities: Moves all extremities. Neurologic: Grossly intact. Skin: No signs of jaundice. Vascular: All extremities perfused. LABORATORY/DIAGNOSTIC DATA: None today. Abdominal film pending. Reviewed films from yesterday. Picture seems more consistent with potentially a constipation-like pattern. ASSESSMENT AND PLAN: Small-bowel obstruction versus constipation. Small bowel obstruction versus constipation: At this time, we will continue with nasogastric tube decompression. Follow up with serial abdominal films and plan on p.r.n. enemas to see if we can encourage the constipation to improve. I would like to continue conservative management. Hold off on any kind of surgical intervention. This was all discussed with the patient. He voiced understanding.
--- NOTE | 2016-12-20 10:29 | Diag Imaging Result Document ---
PROCEDURE NAME: ABDOMEN FLAT/UPRIGHT - 12/20/2016 FLAT AND UPRIGHT ABDOMEN: FINDINGS: There is oral contrast throughout much of the colon including portions of the descending colon. There is gas and some solid stool still in the rectum. There does not appear to have been much progress since the previous study of 12/19/2016. The NG tube has apparently been partially withdrawn with its tip near the cardia of the stomach. IMPRESSION: The possibility of ileus cannot be excluded.
[2016-12-20] MEDS: CORDARONE PO SCH ×2 (11:34→11:43)
[2016-12-20] MEDS: FLEET ENEMA PR PRN (11:58)
--- NOTE | 2016-12-20 16:20 | PROGRESS NOTE ---
DATE: 12/20/2016 SUBJECTIVE: The patient complains of abdominal pain and just generalized aches. He currently has an NG tube in place to low intermittent suction. OBJECTIVE: Vital Signs: Temperature 98.6 degrees, blood pressure 166/71, heart rate 102, respirations 16, O2 saturation 96% on 3 L nasal cannula. General: This is an elderly male, sitting up in bed, in no acute distress. Head: Normocephalic, atraumatic. Heart: S1, S2. Normal. Regular rate and rhythm. Lungs: Clear to auscultation bilaterally. No wheezes, no rales. No rhonchi. Abdomen: Hypoactive bowel sounds. Soft. Distended. Extremities: No edema. No cyanosis. No calf tenderness. Neurologic: The patient is alert and oriented x3. LABS: INR 3.2. Sodium 141, potassium 4.1, chloride 98, CO2 27, BUN 20, creatinine 1.3, glucose 97. ASSESSMENT AND PLAN: 1. Ileus versus small-bowel obstruction. Continue with NG tube decompression. General Surgery is following. 2. Bilateral lobe pneumonia. Continue on Zosyn and vancomycin. Dr. Del Valle is following. 3. Acute kidney injury. Continue on IV fluid hydration. 4. Atrial fibrillation. The patient is currently rate controlled. The patient's INR is 3.2 today. 5. Chronic diastolic congestive heart failure. Stable. 6. Diabetes mellitus type 2. Continue on sliding scale insulin. 7. Gastrointestinal prophylaxis. Continue on IV Protonix.
[2016-12-20] MEDS: VANCOMYCIN 1,750 MG in NS 250 ML IV SCH (20:30)
[2016-12-21] MEDS: DILAUDID IV PRN ×5 (02:35→22:37)
[2016-12-21] MEDS: ZOSYN 3.375 GM/NS 50 ML IV SCH ×4 (02:35→19:28)
[2016-12-21] MEDS: DUONEB (A & A) INH SCH ×6 (03:42→23:05)
[2016-12-21] MEDS: FLEET ENEMA PR PRN (04:18)
[2016-12-21 07:03] LABS: HEMATOCRIT 39.8 % (42.0-52.0); HEMOGLOBIN 12.5 g/dL (14.0-18.0); MCH 28.5 PG (27-31); MCHC 31.4 g/dL (33-37); MCV 90.9 FL (81-99); RBC 4.38 XMIL (4.7-6.1)
[2016-12-21 07:12] LABS: INR 2.75; PROTIME 29.4 Seconds (9.2-11.7)
[2016-12-21 07:17] LABS: AGAP 14; BUN 17 mg/dL (8-22); CALCIUM 8.7 mg/dL (8.8-10.2); CHLORIDE 100 mmol/L (98-107); COSMO 280; POTASSIUM 3.8 mmol/L (3.5-5.1); SODIUM 140 mmol/L (136-145); TCO2 26 mmol/L (25-35)
--- NOTE | 2016-12-21 07:38 | PROGRESS NOTE ---
DATE: 12/21/2016 SUBJECTIVE: The patient accidentally had his NG tube removed. He has had a significant amount of bowel movements after his enema. He is overall feeling better. His distention is less but still present. OBJECTIVE: Vital Signs: Patient is currently afebrile. His vital signs have been stable. General: No acute distress. Alert, interactive male. Looks stated age. HEENT: Normocephalic, atraumatic. Pupils equal, round, reactive to light. Mucous membranes moist. Oropharynx benign. Neck: Supple. Trachea midline. Cardiovascular: Regular rate and rhythm. Lungs: Grossly clear. Abdomen: Less distended from yesterday. Soft and nontender. Extremities: Moves all extremities. Neurologic: Grossly intact. Skin: No signs of jaundice. Vascular: All extremities perfused. LABORATORY: None from today. Yesterday's INR is 3.21. Abdominal film from yesterday reviewed. No significant change. He has x-rays from this morning pending. ASSESSMENT AND PLAN: Small bowel obstruction versus constipation. Small bowel obstruction versus constipation. At this time we will continue p.r.n. enemas. If his abdominal distention continues to improve may consider taking PO the next 24 hours with p.o. laxatives. [facility]
[2016-12-21] MEDS: MUCOMYST 20% INH SCH ×2 (07:45→19:52)
[2016-12-21] MEDS: CORDARONE PO SCH (09:29)
[2016-12-21] MEDS: NS 1,000 ML IV SCH ×2 (12:56→18:04)
[2016-12-21] MEDS: SOLU-MEDROL IV SCH ×2 (13:01→19:28)
[2016-12-21] MEDS: PROTONIX IV SCH ×2 (13:01→22:36)
[2016-12-21] MEDS: SODIUM CHLORIDE 0.9% INJ SCH ×2 (13:01→22:36)
--- NOTE | 2016-12-21 13:32 | PROGRESS NOTE ---
DATE: 12/21/2016 SUBJECTIVE: The patient is sitting at the edge of the bed. He just had a bowel movement. He does complain of shortness of breath with minimal exertion. He denies having any abdominal pain at this time. His nasogastric tube came out overnight. OBJECTIVE: Vital Signs: Temperature 97.8 degrees, blood pressure 100/46, heart rate 90, respirations 18, O2 saturations 95% on room air. General: This is an elderly male, sitting at the edge of the bed, in no acute distress. Head: Normocephalic, atraumatic. Heart: S1, S2 normal. Regular rate and rhythm. Lungs: Diffuse expiratory wheezes in all lung ortega. No crackles. No rales. Abdomen: Positive bowel sounds. Soft. Distended. Extremities: No edema. No cyanosis. No calf tenderness. Neurologic: The patient is alert and oriented x3. LABS: White blood cell count 12, hemoglobin 12, hematocrit 39, platelets 236,000. INR 2.7. Sodium 140, potassium 3.8, chloride 100, CO2 26, BUN 17, creatinine 1, glucose 84. Calcium 8.7. ASSESSMENT AND PLAN: 1. Small bowel obstruction versus severe constipation. The patient is currently on enemas. His nasogastric tube came out overnight. General surgery is following. We will continue on IV fluids for now since the patient is NPO. 2. Pneumonia. Continue on Zosyn and vancomycin as directed by Dr. Del Valle. The patient has also been encouraged to use his incentive spirometer. 3. Chronic obstructive pulmonary disease exacerbation. Given the extensive wheezing, we will start the patient on IV steroids. Continue on bronchodilator therapy and supplemental oxygen. 4. Atrial fibrillation. The patient is currently rate controlled. His INR is therapeutic; however, his Coumadin is on hold because he is NPO. Will transition to Lovenox if the patient's has not been cleared for p.o. intake and his INR becomes subtherapeutic. 5. Gastrointestinal prophylaxis. We will start the patient on IV Protonix. 6. The patient has been encouraged to ambulate with assistance in the hallway.
--- NOTE | 2016-12-21 14:52 | Diag Imaging Result Document ---
PROCEDURE NAME: ABDOMEN FLAT/UPRIGHT - 12/21/2016 FLAT AND UPRIGHT ABDOMEN: FINDINGS: There is some contrast medium present in the colon on the right. There is less small bowel opacification than on 12/20/2016. There is still considerable small bowel dilatation. IMPRESSION: 1. No evidence of obstruction. 2. The possibility of mild ileus cannot be excluded.
[2016-12-21] MEDS: VANCOMYCIN 1,750 MG in NS 250 ML IV SCH (20:49)
[2016-12-22] MEDS: DILAUDID IV PRN ×6 (01:59→21:35)
[2016-12-22] MEDS: ZOSYN 3.375 GM/NS 50 ML IV SCH ×4 (01:59→20:48)
[2016-12-22] MEDS: FLEET ENEMA PR PRN ×2 (03:01→20:46)
[2016-12-22] MEDS: SOLU-MEDROL IV SCH ×3 (03:01→23:52)
[2016-12-22] MEDS: DUONEB (A & A) INH SCH ×6 (05:11→22:46)
[2016-12-22] MEDS: NS 1,000 ML IV SCH (05:39)
--- NOTE | 2016-12-22 06:18 | PROGRESS NOTE ---
DATE: 12/22/2016 SUBJECTIVE: Patient had multiple bowel movements yesterday after enemas. He feels less distended and he does want something to eat. OBJECTIVE: Vital Signs: Patient is currently afebrile. His vital signs have been stable. General Examination: No acute distress. Alert, interactive, male, looks stated age. HEENT: Normocephalic, atraumatic. Pupils equal, round, react to light. Mucous membranes moist. Oropharynx benign. Neck: Supple. Trachea midline. Cardiovascular: Regular rate and rhythm. Lungs: Grossly clear. Abdomen: Less distended from yesterday and soft. Bowel sounds auscultated. Extremities: Moves all extremities. Neurologic: Grossly intact. Skin: No signs of jaundice. Vascular: All extremities perfused. Laboratory: Reviewed from yesterday. Labs from this morning currently pending. ASSESSMENT/PLAN: Small bowel obstruction versus constipation. Small-bowel obstruction versus constipation. At this time, given the less distention and the bowel movements, we will start on a clear liquid diet and MiraLAX. We will continue to monitor the patient with you.
[2016-12-22 07:13] LABS: HEMOGLOBIN 12.7 g/dL (14.0-18.0); MCH 28.3 PG (27-31); MCHC 31.8 g/dL (33-37); MCV 89.1 FL (81-99); MPV 10.1 FL (7.4-10.4); RBC 4.49 XMIL (4.7-6.1)
[2016-12-22 07:17] LABS: INR 3.02; PROTIME 32.4 Seconds (9.2-11.7)
[2016-12-22 07:25] LABS: AGAP 11; BUN 16 mg/dL (8-22); CALCIUM 8.9 mg/dL (8.8-10.2); CHLORIDE 97 mmol/L (98-107); COSMO 272; MAGNESIUM 2.2 mg/dL (1.5-2.7); POTASSIUM 4.4 mmol/L (3.5-5.1); SODIUM 135 mmol/L (136-145); TCO2 27 mmol/L (25-35)
[2016-12-22] MEDS: MUCOMYST 20% INH SCH ×2 (08:05→20:00)
--- NOTE | 2016-12-22 08:07 | Diag Imaging Result Document ---
PROCEDURE NAME: CHEST-2 VIEWS - 12/22/2016 CHEST X-RAY 2 VIEWS, 12/22/2016: COMPARISON: 12/18/2016. FINDINGS: Stable COPD with pulmonary scarring. There is some indistinct interstitial infiltrate diffusely and bilaterally similar to prior. This may represent pulmonary edema or pneumonia. Heart size remains grossly normal. IMPRESSION: No significant change from prior.
--- NOTE | 2016-12-22 08:10 | Diag Imaging Result Document ---
PROCEDURE NAME: ABDOMEN FLAT/UPRIGHT - 12/22/2016 X-RAY ABDOMEN 2 VIEWS, 12/22/2016: COMPARISON: 12/21/2016. FINDINGS: There is worsening appearance of bowel obstruction. There are now some clearly gas- dilated loops of small bowel in the left mid abdomen measuring about 5.4 cm. These were probably present previously but are more distinct on today's exam. There is also constipation. IMPRESSION: Small-bowel obstruction which is more evident on today's exam but is probably similar to prior.
--- NOTE | 2016-12-22 08:54 | PROGRESS NOTE ---
DATE: 12/22/2016 PRESENT ILLNESS: Patient is currently being treated for pneumonia. He has developed a swollen abdomen which could be due to an ileus or possibly due to obstruction from adhesions. MEDICATIONS: The patient is on a combination of vancomycin and Zosyn. He also is receiving steroids. PHYSICAL EXAMINATION: Vital Signs: Temperature is 98.2 degrees, pulse 77, respirations 14, blood pressure 155/76. Generally: This is a chronically ill-appearing, elderly male who is in no acute distress at this time. Lungs: Clear to auscultation. Cardiovascular: Regular heart rate. Abdomen: Slightly swollen but not as swollen as it was last week. The abdomen is not tender. Neurologic: Patient is awake. He can move his extremities. There is no tremor. LAB AND X-RAY: The patient's chest x-ray shows pneumonia and fibrosis. The patient's CBC shows a white count of 7.39, hemoglobin 12.7, and platelet count 285,000. Blood cultures are sterile. Creatinine is 0.9. GFR is greater than 60. Swab for influenza is negative. Sputum is growing out normal varinder. X-ray of the abdomen shows ileus. ASSESSMENT AND PLAN: Dr. Ridley is following the patient for his abdominal swelling with an ileus versus obstruction. The patient appears to be improving and Dr. Ridley has increased the patient's diet to liquids. As regarding the patient's pneumonia, I would suggest continued treatment. The patient is scheduled to go down today for a chest x-ray as well as abdominal x-ray. COMORBIDITIES: Include COPD. He has had surgery on his abdomen and there are thought to be many adhesions in the abdomen.
[2016-12-22] MEDS: MIRALAX PO SCH (09:00)
[2016-12-22] MEDS: CORDARONE PO SCH (09:00)
[2016-12-22] MEDS: PROTONIX IV SCH ×2 (11:57→23:52)
[2016-12-22] MEDS: LACTULOSE PO SCH ×2 (14:45→20:48)
--- NOTE | 2016-12-22 16:32 | PROGRESS NOTE ---
DATE: 12/22/2016 SUBJECTIVE: Patient has no complaints. OBJECTIVE: Vital signs: Blood pressure 125/46, heart rate of 85, respiratory 21, temperature 97.7 degrees, 97% on 2 L. Cardiovascular: Regular rate and rhythm. Pulmonary: Rhonchi diminished at bases. GI: Soft, nontender, nondistended. Bowel sounds are positive. LABORATORY DATA: White count is normal. Hemoglobin and hematocrit 12 and 40, platelets 285,000. Chemistries are intact. PROBLEM LIST: 1. Pneumonia. We will continue empiric antibiotics. He is on vancomycin day 7 and Zosyn day 8. Probably finish those next 7-[address] Del Valle is following. I am going to decrease his steroids. I do not think he still needs those. 2. Paroxysmal atrial fibrillation appears to be rate controlled. His INR is therapeutic. Will repeat that tomorrow. 3. Partial small bowel obstruction. Appears to be resolving. His diet has been advanced. He is on MiraLAX daily. I may give him some lactulose couple doses try to clear him out because it is unclear if this is not just severe constipation. DISCHARGE PLANNING DISPOSITION: Will be I think 1-2 days on him. Will continue to follow.
[2016-12-22] MEDS: VANCOMYCIN 1,750 MG in NS 250 ML IV SCH (21:35)
[2016-12-23] MEDS: DUONEB (A & A) INH SCH ×6 (03:27→23:21)
[2016-12-23] MEDS: ZOSYN 3.375 GM/NS 50 ML IV SCH ×5 (03:42→21:13)
[2016-12-23] MEDS: DILAUDID IV PRN ×5 (03:42→20:58)
[2016-12-23 07:41] LABS: HEMATOCRIT 38.8 % (42.0-52.0); HEMOGLOBIN 12.3 g/dL (14.0-18.0); MCH 28.5 PG (27-31); MCHC 31.7 g/dL (33-37); MCV 89.8 FL (81-99); MPV 10.1 FL (7.4-10.4); RBC 4.32 XMIL (4.7-6.1)
--- NOTE | 2016-12-23 07:47 | PROGRESS NOTE ---
DATE: 12/23/2016 SUBJECTIVE: Patient doing well. Reports bowel movement yesterday. Tolerating clear liquids. No major issues. OBJECTIVE: Vital Signs: The patient is currently afebrile. His vital signs have been stable. General Examination: No acute distress. Alert, interactive, male. Looks stated age. HEENT: Normocephalic, atraumatic. Pupils equal, round, and react to light. Mucous membranes moist. Oropharynx benign. Neck: Supple. Trachea midline. Cardiovascular: Regular rate and rhythm. Lungs: Grossly clear. Abdomen: Continues to be less distended from admission. Bowel sounds auscultated. Extremities: Moves all extremities. Neurologic: Grossly intact. Skin: No signs of jaundice. Vascular: All extremities perfused. Laboratory: Reviewed from yesterday. ASSESSMENT/PLAN: Small bowel obstruction versus chronic constipation. Small-bowel obstruction versus chronic constipation. At this time, we will advance the patient to a full liquid diet. Continue to monitor.
[2016-12-23] MEDS: MUCOMYST 20% INH SCH ×2 (07:50→19:49)
[2016-12-23 08:08] LABS: INR 2.23; PROTIME 23.8 Seconds (9.2-11.7)
[2016-12-23 08:36] LABS: AGAP 15; BUN 17 mg/dL (8-22); CALCIUM 9.2 mg/dL (8.8-10.2); CHLORIDE 106 mmol/L (98-107); COSMO 294; POTASSIUM 4.6 mmol/L (3.5-5.1); SODIUM 146 mmol/L (136-145); TCO2 25 mmol/L (25-35)
[2016-12-23] MEDS: MIRALAX PO SCH (09:01)
[2016-12-23] MEDS: CORDARONE PO SCH (09:02)
[2016-12-23] MEDS: LACTULOSE PO SCH ×2 (09:02→21:00)
--- NOTE | 2016-12-23 09:53 | PROGRESS NOTE ---
DATE: 12/23/2016 HISTORY: The patient has bilateral pneumonia. He also has a swollen abdomen which could be due to an ileus or possibly a bowel obstruction. MEDICATIONS: The is the 7th day of treatment with a combination of vancomycin and Zosyn. Patient also is on steroids. PHYSICAL EXAMINATION: Vital Signs: Temperature is 98.3 degrees, pulse 64, respirations 18, blood pressure 159/72. General: This is a chronically ill-appearing, elderly male. He is in no acute distress. Thorax: Increased AP diameter of the chest. Lungs: Scattered rhonchi bilaterally. Cardiovascular: Regular heart rate. Abdomen: Soft without masses or tenderness. LAB AND X-RAY: Chest x-ray shows bilateral infiltrates which are unchanged. CBC shows a white count of 10,640, hemoglobin 12.3, and platelet count is 265,000. Creatinine is 1.2. GFR is greater than 60. ASSESSMENT AND PLAN: The patient has pneumonia and also either ileus or bowel obstruction. My plan is to continue the patient's antibiotics for another 7 days to complete a 14 day treatment course of presumed pneumonia. COMORBIDITIES: Include COPD and prior abdominal surgeries which would predispose to adhesions forming. The comorbidities include COPD and prior surgery on the abdomen of the patient which could have caused adhesions to form.
[2016-12-23] MEDS: SOLU-MEDROL IV SCH (11:43)
[2016-12-23] MEDS: PROTONIX IV SCH (11:43)
--- NOTE | 2016-12-23 12:28 | PROGRESS NOTE ---
DATE: 12/23/2016 SUBJECTIVE: Patient is currently lying in bed resting with no complaints. Denies nausea or vomiting. Bowel movement this morning that was soft and small. Passing some gas. Tolerating full liquid meals. He also reports just a little bit of results after his enema last night. OBJECTIVE: Vital Signs: Temperature 98.3 degrees, heart rate 64, respiratory rate 14, blood pressure 159/72, O2 saturation 94% on 2L. General: Mr. Dumont is a 66-year- old male who is in no acute distress, able to answer questions appropriately. Cardiovascular: S1 and S2. Regular rate and rhythm. No rubs, gallops, or murmurs. Pulmonary: Bilateral rhonchi, diminished in the bases. No accessory muscle use or work of breathing noted currently on 2L nasal cannula. Gastrointestinal: Abdomen is soft, distended. Tenderness positive in left upper quadrant. LABORATORY DATA: White blood cells 10,000, hemoglobin 12, hematocrit 38, platelet count 265,000. INR 2.23. Sodium 146, potassium 4.6, BUN 17, creatinine is 1.2, glucose 124. IMAGING: Chest x-ray on 12/22/01: Stable COPD with pulmonary scarring, some indistinct interstitial infiltrate diffusely and bilaterally which could represent pulmonary edema or pneumonia. ASSESSMENT AND PLAN: 1. Pneumonia. Will continue with antibiotics. Dr. Del Valle is following. Steroids have been decreased. Continue with aggressive pulmonary toilet and p.r.n. nasal cannula. 2. Paroxysmal atrial fibrillation. Rate is controlled. INR is therapeutic. Continue with Coumadin 5 mg p.o. nightly. 3. Partial small-bowel obstruction. Continues to appear as if it is resolving. He received an enema last night and had some or just a little amount of results from the enema. Continued on lactulose twice daily. He did have a small soft bowel movement this morning. We will continue with MiraLAX daily also. 4. Gastrointestinal prophylaxis. We will continue with Protonix 40 mg IV q.12 hours. 5. Deep venous thrombosis prophylaxis. He is currently on Coumadin. Dictated by SELIN Saucedo for Frandy Garcia MD Addendum: I personally evaluated and examined the patient in conjunction with the MARKETING SERVICES MANAGER and agreed with the assessment and plans. My examination revealed of pedal edema. Will restart him back on his home Lasix. MTDD
[2016-12-23] MEDS: VANCOMYCIN 1,750 MG in NS 250 ML IV SCH (20:59)
[2016-12-23] MEDS: LASIX PO SCH (21:13)
[2016-12-23] MEDS: COUMADIN PO SCH (21:13)
[2016-12-24] MEDS: SODIUM CHLORIDE 0.9% INJ SCH (00:19)
[2016-12-24] MEDS: PROTONIX IV SCH ×2 (00:19→11:51)
[2016-12-24] MEDS: SOLU-MEDROL IV SCH ×2 (00:19→11:50)
[2016-12-24] MEDS: NORCO-10 PO PRN ×2 (00:24→20:45)
[2016-12-24] MEDS: ZOSYN 3.375 GM/NS 50 ML IV SCH ×4 (03:47→20:45)
[2016-12-24] MEDS: DILAUDID IV PRN ×4 (03:47→18:23)
[2016-12-24] MEDS: DUONEB (A & A) INH SCH ×6 (05:31→23:49)
--- NOTE | 2016-12-24 06:40 | PROGRESS NOTE ---
DATE: 12/24/2016 SUBJECTIVE: Patient doing well. Still reports having bowel movements. Tolerating full liquids. No major issues. OBJECTIVE: Vital Signs: Patient is currently afebrile. His vital signs have been stable. General: No acute distress. Alert, interactive, male looks stated age. HEENT: Normocephalic, atraumatic. Pupils equal, round, react to light. Mucous membranes moist. Oropharynx benign. Neck: Supple. Trachea midline. Cardiovascular: Regular rate and rhythm. Lungs: Grossly clear. Abdomen: Mildly to moderately distended but no worse from yesterday. Bowel sounds auscultated. Extremities: Moves all extremities. Neurologic: Grossly intact. Skin: No signs of jaundice. Vascular: All extremities perfused. LABORATORIES: From yesterday reviewed. ASSESSMENT AND PLAN: Small bowel obstruction versus constipation. Small bowel obstruction versus constipation: At this time, will advance the patient to a regular diet. We will continue to monitor. Told the patient to take in p.o. cautiously. Will continue MiraLAX and stool softeners and enemas.
[2016-12-24 07:39] LABS: INR 1.57; PROTIME 16.7 Seconds (9.2-11.7)
[2016-12-24 07:43] LABS: HEMATOCRIT 40.8 % (42.0-52.0); IMM GRAN# 0.02 X1000 (0.0-0.04); IMM GRAN% 0.3 % (0.0-0.5); LYMPH# 0.42 X1000 (1.2-3.4); LYMPH% 6.1 % (20.5-51.1); MANUAL DIFF NEEDED? YES; MCH 28.3 PG (27-31); MCHC 31.9 g/dL (33-37); MCV 88.7 FL (81-99); MONO# 0.13 X1000 (0.11-0.59); MONO% 1.9 % (1.7-9.3); MPV 9.7 FL (7.4-10.4); NEUT% 91.7 % (42.2-75.2); PLT 273 X1000 (130-400)
[2016-12-24] MEDS: MUCOMYST 20% INH SCH ×2 (07:46→20:02)
[2016-12-24 07:56] LABS: AGAP 9; BUN 14 mg/dL (8-22); CALCIUM 8.6 mg/dL (8.8-10.2); CHLORIDE 97 mmol/L (98-107); COSMO 275; MAGNESIUM 2.3 mg/dL (1.5-2.7); POTASSIUM 4.6 mmol/L (3.5-5.1); SODIUM 137 mmol/L (136-145); TCO2 31 mmol/L (25-35)
[2016-12-24 08:16] LABS: LYMPHS 2 % (21-51); MONO 2 % (1-9)
[2016-12-24] MEDS: MIRALAX PO SCH (08:59)
[2016-12-24] MEDS: CORDARONE PO SCH (08:59)
[2016-12-24] MEDS: LACTULOSE PO SCH ×2 (08:59→20:45)
[2016-12-24] MEDS: LASIX PO SCH ×2 (08:59→20:45)
--- NOTE | 2016-12-24 11:28 | PROGRESS NOTE ---
DATE: 12/24/2016 SUBJECTIVE: Mr. Dumont is a 66-year-old male, who is currently in no distress. He was resting comfortably on his left side in bed. He woke easily and answered all questions appropriately. He states he feels much better. No complaints of pain. No complaints of nausea, and is stating that he is ready to go home. Plans are for possible home tomorrow if he tolerates his food diet. OBJECTIVE: Vital Signs: Temperature is 96.9 degrees, heart rate 59, respiratory rate 18, blood pressure 145/69, O2 saturation 97% on 2 L nasal cannula. General: Mr. Dumont is a 66-year-old, male, in no acute distress Cardiovascular: S1, S2. Regular rate and rhythm. No rubs, gallops or murmurs. Pulmonary: Clear to auscultation. Bilateral breath sounds. No expiratory wheezes noted. No accessory muscle use or work of breathing noted. Currently on 2 L nasal cannula with maintained O2 saturations. GI: Soft, nontender, mildly distended , but positive bowel sounds x4. Extremities: No edema noted. +2 dorsalis and radial pulses. LABORATORY DATA: White blood cells 6000, hemoglobin 13, hematocrit 40, platelet count 273. INR 1.57. Sodium 137, potassium 4.6, BUN 14, creatinine is 1.1, glucose 107, calcium 8.6, magnesium 2.3, phosphorus 3.0. IMAGING: None. ASSESSMENT AND PLAN: 1. Pneumonia. Dr. Del Valle is following. Currently on Zosyn and vancomycin. Will repeat chest x- ray tomorrow to evaluate resolution of pneumonia. He is afebrile and white blood cells are normal. 2. Chronic obstructive pulmonary disease exacerbation. Steroids were decreased. Continue with aggressive pulmonary toilet. No expiratory wheezes or work of breathing noted. 3. Paroxysmal atrial fibrillation, rate controlled. INR is lower than therapeutic. He is on Coumadin 5 mg oral nightly. Will repeat INR in the morning. If continues to be low, may need to increase Coumadin. We will resume his home oral Lasix. 4. Partial small-bowel obstruction versus severe constipation. He has had a bowel movement. It is soft and brown now. His diet has been advanced by surgery to a regular diet. If he tolerates a regular diet, he can go home tomorrow. 5. Gastrointestinal prophylaxis. Continue with Protonix. 6. Deep vein thrombosis prophylaxis. He is on Coumadin. Dictated by SELIN Saucedo for Frandy Garcia MD Addendum: I have evaluated and examined the patient in conjunction to the [employer] and agreed with her assessments and plans. Still has a lot of crackle on the right lower lobe. MTDD
--- NOTE | 2016-12-24 16:10 | PROGRESS NOTE ---
DATE: 12/24/2016 PRESENT ILLNESS: The patient has a bilateral pneumonia. He also has a possible bowel obstruction due to ileus or adhesions. MEDICATIONS: This is the 8th day of treatment with a combination of vancomycin and Zosyn. The patient also is receiving steroids. PHYSICAL EXAMINATION: Vital Signs: Temperature is 97.8 degrees, pulse is 60, respirations 18, blood pressure is 180/70. General: This is a somewhat ill-appearing, elderly male. He is in no acute distress. Cardiovascular: Regular heart rate. Lungs: There were scattered bilateral rhonchi. Abdomen: Slightly protuberant but soft and nontender. The patient has been having ice chips and liquids and tolerating them well. LAB AND X-RAY: There is no new x-ray today. The lab shows a CBC with a white count of 6,930, hemoglobin 13, and a platelet count of 273,000. Creatinine is 1.1. GFR is greater than 60. There is no new chest x-ray. ASSESSMENT AND PLAN: The patient has pneumonia. I discussed with the patient and his various treatment options. The patient felt like he was getting over his pneumonia but both he and his would like an oral antibiotic to be taken for a few days. Patient does have a Levaquin allergy. I think it would be reasonable to put the patient on Septra DS 1 b.i.d. for 5 more days. From an infectious disease point of view, I think the patient could go home tomorrow. Hopefully his abdomen will improve and he will be able to be discharged. I told the patient that if he should have any problem to check with me or if his primary care physician needed me I would be available to see the patient. The patient's comorbidities include COPD and adhesions in his abdomen. Patient also continues to smoke cigarettes.
[2016-12-24] MEDS: VANCOMYCIN 1,750 MG in NS 250 ML IV SCH (20:45)
[2016-12-24] MEDS: COUMADIN PO SCH (20:45)
[2016-12-25] MEDS: SODIUM CHLORIDE 0.9% INJ SCH ×2 (01:39→12:34)
[2016-12-25] MEDS: ZOSYN 3.375 GM/NS 50 ML IV SCH ×2 (01:40→09:23)
[2016-12-25] MEDS: DILAUDID IV PRN ×2 (01:40→12:34)
[2016-12-25] MEDS: SOLU-MEDROL IV SCH ×2 (01:40→12:34)
[2016-12-25] MEDS: PROTONIX IV SCH ×2 (01:40→12:34)
[2016-12-25] MEDS: DUONEB (A & A) INH SCH ×3 (03:30→11:22)
--- NOTE | 2016-12-25 06:40 | PROGRESS NOTE ---
DATE: 12/25/2016 SUBJECTIVE: Patient doing well, tolerating his regular diet. Had small bowel movements. Still passing gas. No major issues. OBJECTIVE: Vital Signs: Patient is currently afebrile. His vital signs have been stable. General: No acute distress. Alert, interactive, male looks stated age. HEENT: Normocephalic, atraumatic. Pupils equal, round, reactive to light. Mucous membranes moist. Oropharynx benign. Neck: Supple. Trachea midline. Cardiovascular: Regular rate and rhythm. Lungs: Grossly clear. Abdomen: Essentially unchanged as far as distention goes. Bowel sounds auscultated. Nontender. Extremities: Moves all extremities. Neurologic: Grossly intact. Skin: No signs of jaundice. Vascular: All extremities perfused. ASSESSMENT/PLAN: Small-bowel obstruction versus constipation Small-bowel obstruction versus constipation: At this time, the patient is tolerating a regular diet. Suspect he will have to stay on MiraLAX every day for the rest of his life. At this time, he can potentially be discharged home today but will defer to the hospitalist service.
[2016-12-25 07:26] LABS: HEMOGLOBIN 13.2 g/dL (14.0-18.0); LYMPH% 4.8 % (20.5-51.1); MANUAL DIFF NEEDED? YES; MCH 28.4 PG (27-31); MCHC 32.2 g/dL (33-37); MCV 88.4 FL (81-99); MONO# 0.09 X1000 (0.11-0.59); MONO% 1.1 % (1.7-9.3); MPV 10.2 FL (7.4-10.4); NEUT% 94.1 % (42.2-75.2); PLT 283 X1000 (130-400); RBC 4.64 XMIL (4.7-6.1)
[2016-12-25 07:45] LABS: AGAP 13; ALBUMIN 3.2 g/dL (3.5-5.0); ALKALINE PHOSPHATASE 44 U/L (32-122); BUN 16 mg/dL (8-22); CALCIUM 8.9 mg/dL (8.8-10.2); CHLORIDE 96 mmol/L (98-107); COSMO 280; GOT 12 U/L (10-34); GPT 18 U/L (10-44); MAGNESIUM 2.3 mg/dL (1.5-2.7); POTASSIUM 3.9 mmol/L (3.5-5.1); SODIUM 139 mmol/L (136-145); TCO2 30 mmol/L (25-35); TOTAL BILIRUBIN 0.37 mg/dL (0.20-1.00); TOTAL PROTEIN 6.1 g/dL (6.3-8.3)
[2016-12-25 07:47] LABS: INR 1.48; PROTIME 15.8 Seconds (9.2-11.7)
[2016-12-25 07:59] LABS: LYMPHS 6 % (21-51)
[2016-12-25] MEDS: MUCOMYST 20% INH SCH (08:28)
[2016-12-25] MEDS: MIRALAX PO SCH (09:26)
[2016-12-25] MEDS: LACTULOSE PO SCH (09:26)
[2016-12-25] MEDS: LASIX PO SCH (09:27)
[2016-12-25] MEDS: CORDARONE PO SCH (09:27)
[2016-12-25] MEDS ORDERED: COUMADIN PO SCH (09:38)
[2016-12-25 13:10] VITALS: BP 150/67
--- NOTE | 2016-12-25 17:02 | DISCHARGE SUMMARY ---
ADMISSION DATE: 12/16/2016 DISCHARGE DATE: 12/25/2016 CONSULTATIONS: 1. Dr. Elijah Del Valle with Infectious Disease. 2. Dr. Dipak Ridley with General Surgery URGENT PROCEDURES: Chest CT showed development of multifocal bilateral pneumonia with pulmonary edema. Modified barium swallow: There was no aspiration. Normal primary and secondary peristalsis. Moderate degenerative changes in the mid and lower cervical spine. Mild delay in relaxation of the cricopharyngeus muscle. No other abnormalities identified. Abdominal x-ray suggests denies fairly significant constipation. Followup abdominal x-ray: Possibility of ileus could not be ruled out. Third and final showed a small bowel obstruction which was more evident but similar to prior exam. DISCHARGE DIAGNOSIS: 1. Pneumonia. Patient is being followed by Infectious Disease, discharged home on . 2. Chronic obstructive pulmonary disease exacerbation. Improved. 3. Paroxysmal atrial fibrillation. Rate controlled. Continue with Coumadin. 4. Partial small-bowel obstruction versus severe constipation. Patient has had a bowel movement. His diet was advanced by Surgery to a regular diet. He tolerated that well. HOSPITAL COURSE: Briefly, Mr. Dumont is a 66-year-old male patient with history of COPD, coronary artery disease status post coronary artery bypass graft seen with atrial fibrillation, chronic systolic congestive heart failure, diabetes mellitus type 2 who presented to the ED with a chief complaint of fever, chills, increasing shortness of breath and productive cough. Patient had similar symptoms 3 weeks ago where he was treated by his primary care physician , Dr. Rick Jeffery with antibiotics and steroids. Patient reported a productive cough with greenish colored sputum, shortness of breath with minimal exertion. In the ER, patient was febrile with a temperature of 102.4 degrees. His O2 saturations were 90% on 3 L. Chest x-ray revealed a right lower lobe pneumonia. While in the ED, he did have blood cultures as well as sputum culture done as well as started on Zosyn and vancomycin. Patient was continued on bronchodilators and IV steroids. To make sure the patient was not aspirating, he underwent a modified barium swallow that did not show anything acute. Dr. Ridley was consulted for concern of a possible small bowel obstruction versus constipation. An NG tube was placed for decompression with serial abdominal films and p.r.n. enemas to encourage the constipation to improve and hold off for any surgical intervention. The patient's distention decreased. The patient started having bowel movements. He was started on a clear liquid diet as well as MiraLAX. His nasogastric tube was removed. He was eventually advanced to a regular diet. He was having small bowel movements. Still passing gas. Dr. Ridley feels that the patient needs to stay on MiraLAX permanently. From his standpoint, he felt like he could be discharged home today. The patient was on his 8th day of treatment with a combination of vancomycin and Zosyn for his pneumonia as well as IV steroids. He is being discharged home on p.o. antibiotics. The patient was thoroughly educated on smoking cessation given his comorbidity of COPD and infusions and adhesions in his abdomen. Vital signs at time of discharge, temperature is 97.8 degrees, heart rate 82, respirations 22, blood pressure is 150/67, O2 is 92% on 2 L nasal cannula. DISCHARGE DIET: Regular. DISCHARGE MEDICATIONS: 1. Amiodarone 200 mg p.o. daily. 2. Rosuvastatin calcium 40 mg p.o. daily. 3. Zocor 50 mg p.o. daily. 4. Lasix 40 mg p.o. b.i.d. 5.HCTZ 25 mg p.o. daily. 6. Warfarin sodium 5 mg p.o. at bedtime. 7. Aspirin 81 mg p.o. daily. 8. [place] 10/325 one each p.o. 4 times a day. 9. MiraLAX 17 g p.o. daily. 10. Septra DS 1 each p.o. b.i.d. for the next 5 days. FOLLOWUP: The patient is being discharged home. He is to follow up with Dr. Del Valle as needed as well as his primary care physician, Dr. Rick Jeffery in 1 week. The patient can return to the ED for any worsening of symptoms. DISCHARGE TIME: Greater than 30 minutes. Dictated by SELIN Braga for Frandy Garcia MD Addendum: I personally evaluated and examined the patient in conjunction with the TAX MANAGER and agreed her plans and disposition. He has had a BM this morning. Has a good bs on examination [facility]
== END 2016-12-25 14:04 | disposition home or self-care (01) | DRG 190 ==
LOC: EDBD → EDUNIT# → ED 12:47 → EDIPHOLD 18:34 → 3N 20:12
PROVIDERS: ATTEND Internal Medicine
PROC: 0D9670Z Drainage of Stomach with Drainage Device, Via Natural or Artificial Opening (ICD-10-PCS; principal; 2016-12-19)
DX: J44.0 Chronic obstructive pulmonary disease with (acute) lower respiratory infection (principal); J18.9 Pneumonia, unspecified organism; N17.9 Acute kidney failure, unspecified; K55.1 Chronic vascular disorders of intestine; K56.60 Unspecified intestinal obstruction; I11.0 Hypertensive heart disease with heart failure; I50.32 Chronic diastolic (congestive) heart failure; E11.51 Type 2 diabetes mellitus with diabetic peripheral angiopathy without gangrene; E78.5 Hyperlipidemia, unspecified; I25.10 Atherosclerotic heart disease of native coronary artery without angina pectoris; F17.210 Nicotine dependence, cigarettes, uncomplicated; M19.90 Unspecified osteoarthritis, unspecified site; K59.00 Constipation, unspecified; J44.1 Chronic obstructive pulmonary disease with (acute) exacerbation; I48.0 Paroxysmal atrial fibrillation; Z95.1 Presence of aortocoronary bypass graft; Z79.82 Long term (current) use of aspirin; Z79.899 Other long term (current) drug therapy; Z79.01 Long term (current) use of anticoagulants; Z82.49 Family history of ischemic heart disease and other diseases of the circulatory system; Z80.9 Family history of malignant neoplasm, unspecified; Z83.3 Family history of diabetes mellitus
CPT/HCPCS: 71010; 71020; 71250; 74000; 74020; 74230; 80048; 80053; 80202; 81001; 82550; 82784; 82805; 82948; 83605; 83735; 84100; 84484; 85025; 85027; 85610; 85730; 87040; 87070; 87205; 87804; 93005; 94640; 94760; 94761; 94799; 96365; 96366; 96367; C9113; J1170; J1644; J1940; J2543; J2920; J3370; J7030; J7050; 92611-GN; 97110-GP; 97116-GP; 97530-GP; S0164

== ENCOUNTER 2017-03-16 12:28 | Inpatient (IN) ==
[2017-03-16] MEDS ORDERED: ASPIRIN PO STA (13:04)
[2017-03-16] MEDS ORDERED: DUONEB (A & A) INH ONE (13:06)
--- NOTE | 2017-03-16 13:28 | Diag Imaging Result Doc PS360 ---
EXAM: CHEST-2 VIEWS INDICATION: CP COMPARISON: 12/22/2016 FINDINGS: The lungs are hyperinflated, stable. There are stable calcified pleural plaques at the right lower lung zone and there is stable fibrosis at the lung bases. There is superimposed patchy infiltrate at both lower lung zones that is similar but perhaps not quite as severe as the previous study. There is stable blunting of the right costophrenic angle due to chronic pleural thickening. There are stable CABG changes. Cardiomediastinal silhouette is essentially unchanged. IMPRESSION: COPD and fibrotic changes with apparent superimposed infiltrate at the lower lung zones that is perhaps not quite as severe as the previous study. Electronically signed by Nirav Pires 03/16/2017 1:25 PM
[2017-03-16 13:46] LABS: BASO% 0.1 % (0.0-0.8); HEMATOCRIT 41.3 % (42.0-52.0); LYMPH# 0.36 X1000 (1.2-3.4); LYMPH% 2.6 % (20.5-51.1); MANUAL DIFF NEEDED? NO; MCH 27.8 PG (27-31); MCHC 31.5 g/dL (33-37); MCV 88.4 FL (81-99); MONO% 7.3 % (1.7-9.3); MPV 10.8 FL (7.4-10.4); PLT 256 X1000 (130-400); RBC 4.67 XMIL (4.7-6.1)
[2017-03-16 13:47] LABS: ALBUMIN 3.6 g/dL (3.5-5.0); MAGNESIUM 2.1 mg/dL (1.5-2.7); POTASSIUM 4.2 mmol/L (3.5-5.1); TOTAL BILIRUBIN 0.65 mg/dL (0.20-1.00); TOTAL PROTEIN 7.2 g/dL (6.3-8.3)
[2017-03-16] MEDS ORDERED: TRANDATE PO ONE (14:11)
[2017-03-16 14:21] LABS: INR 7.61; PTT 79.1 Seconds (22.0-36.0)
[2017-03-16] MEDS ORDERED: VITAMIN K 10 MG in NS 50 ML IV ONE (14:41)
[2017-03-16] MEDS ORDERED: APRESOLINE IV PRN (15:24)
[2017-03-16] MEDS ORDERED: VITAMIN K PO ONE (15:29)
--- NOTE | 2017-03-16 15:34 | PROVIDER DOCUMENTATION ---
This chart was entered by Mateus Hills Scribe, acting as scribe for Amada Bales MD. HPI-Respiratory General - General Stated Complaint: SOB, Abnormal labs Time Seen by Provider: 03/16/17 12:51 Source: patient Allergies/Adverse Reactions: Patient Allergies Allergy/AdvReac Type Severity Reaction Status Date / Time latex Allergy RASH Verified 03/16/17 14:02 levofloxacin [From Levaquin] Allergy HIVES Verified 03/16/17 14:02 Home Medications: Home Medication List Medication Instructions Recorded Confirmed Last Taken Type Amiodarone HCl 200 mg PO DAILY 06/04/15 12/16/16 07/19/16 10:00 History Atorvastatin Calcium 40 mg PO DAILY 06/04/15 12/16/16 07/19/16 10:00 History Furosemide 40 mg PO BID 06/04/15 12/16/16 07/19/16 10:00 History Losartan [Cozaar] 50 mg PO DAILY 06/04/15 12/16/16 07/19/16 10:00 History Spironolactone 25 mg PO DAILY 06/04/15 12/16/16 07/19/16 10:00 History Warfarin Sodium 5 mg PO QHS 06/04/15 12/16/16 07/18/16 History Aspirin 81 mg PO DAILY 07/19/16 12/16/16 07/19/16 10:00 History Hydrocodone/Acetaminophen [[place] 1 each PO 4XDAY 07/19/16 12/16/16 Unknown History 10-325 Tablet] Sulfamethoxazole/Tmp D.s. [Septra 1 each PO BID #10 tablet 12/24/16 Unknown Rx Ds] Polyethylene Glycol 3350 [Miralax] 17 gm PO DAILY #0 powder, packet 12/25/16 Unknown Rx - History of Present Illness-Resp Nature of Presenting Problem: patient is a 67 y/o m that presents to the ER with shortness of breath, coughing , and weakness for a few days but got worse yesterday as he returned form [place]. patient has history of COPD and still smokes daily. He denies fever/ chills, chest pain, or edema. Reports having lab work done and having high PT/ INR. He has been on steroids and antibiotics. Quality of Pain: reports: tightness Severity in ED: reports: moderate, severe Onset/Duration: reports: gradual, 2 days ago, 3 days ago Timing: reports: still present, getting worse Context: reports: recent URI Cough Quality/Degree: reports: moderate, dry cough Episode Frequency: occasional episodes (worse when he travels) Current Respiratory Medication Therapy: Initiated see nurses note Modifying Factors: worse with: exertion, coughing Associated Symptoms: reports: cough, shortness of breath, short of breath, wheezing. denies: chest pain/soreness, dizziness, fever/chills, flu-like symptoms, nasal congestion, nasal drainage Similar Symptoms Previously?: Yes Recently seen or treated by another doctor?: Yes Review of Systems - Adult - REVIEW OF SYSTEMS - ADULT Constitutional: denies: chills, fever Eyes: reports: no symptoms reported Ears, Nose, Mouth & Throat: reports: no symptoms reported Cardiovascular: denies: chest pain, orthopnea, palpitations Respiratory: reports: cough, shortness of breath, wheezing Gastrointestinal: denies: abdominal pain, diarrhea, nausea, vomiting Genitourinary: reports: no symptoms reported Musculoskeletal: reports: muscle weakness. denies: back pain, joint pain, neck pain Integumentary: reports: no symptoms reported Neurological: reports: no symptoms reported Psychiatric: reports: no symptoms reported Endocrine: reports: no symptoms reported Hematologic/Lymphatic: reports: no symptoms reported Allergic/Immunologic: reports: no symptoms reported All Other Systems: Reviewed and Negative Past History - Adult - PAST MEDICAL HISTORY-ADULT Review of Records: reports: Old Records Reviewed, Nursing Assessment Review, Medications Reviewed Cardiovascular: reports: cardiac disease, A-Fib, CHF, HTN, hyperlipidemia, DE, other (AAA) Respiratory: reports: COPD, sleep apnea Gastrointestinal: reports: GERD Other Conditions: reports: cataract/glaucoma - PRIOR SURGERIES/PROCEDURES Surgical/Procedure History: reports: CABG, cholecystectomy, hernia repair, joint replacement (total hip), other (AAA, carotid artery) - IMMUNIZATION STATUS Childhood Immunizations: See Nurse Assessment Flu Vaccine: See Nurse Assessment - SOCIAL HISTORY Smoking: cigarettes, less than 1 pack/day Living Situation: family Physical Exam-General - PHYSICAL EXAM-ADULT Initial Vital Signs Reviewed: Yes - CONSTITUTIONAL General Appearance: alert, mild distress, other (ill appearing) - EYES Eyes: PERRL/EOMI, pink conjunctivae - HEAD, EARS, NOSE, MOUTH & THROAT HENMT: normocephalic/atraumatic, moist mucous membranes, normal ENT inspection - NECK Neck: full range of motion, normal inspection - RESPIRATORY Respiratory: no respiratory distress, no accessory muscle use, rales (bilateral lower lobes), rhonchi (bilateral lower lobes), wheezing (bilateral upper lobesw) - CARDIOVASCULAR Cardiovascular: regular rate, rhythm, no edema, no murmur - GASTROINTESTINAL (ABDOMEN) Abdominal Exam: normal bowel sounds, non tender, soft, no organomegaly, no pulsatile mass - MUSCULOSKELETAL Extremity: normal range of motion, normal inspection, no pedal edema - SKIN Integumentary: normal color, warm/dry - NEUROLOGIC Neurologic: grossly normal, no motor/sensory deficits - PSYCHIATRIC Psych/Mental Status: normal mood/affect, normal thought content, normal thought process, oriented x 3 Progress - PLAN OF CARE/RESULTS Progress/Plan/Lab Results: Vital Signs - 8 hr 03/16/17 12:30 03/16/17 12:31 03/16/17 13:21 Temperature 98.0 F Pulse Rate 84 79 Respiratory Rate 24 23 Blood Pressure 192/91 173/88 O2 Sat by Pulse Oximetry 84 L 94 L 93 L 03/16/17 13:25 03/16/17 15:26 Temperature Pulse Rate 66 76 Respiratory Rate 16 19 Blood Pressure 153/66 O2 Sat by Pulse Oximetry 90 L 93 L Laboratory Results - last 24 hr 03/16/17 03/16/17 03/16/17 12:39 12:39 12:39 WBC 13.76 H RBC 4.67 L Hgb 13.0 L Hct 41.3 L MCV 88.4 MCH 27.8 MCHC 31.5 L RDW Std Deviation 14.5 Plt Count 256 MPV 10.8 H Neut % (Auto) 90.0 H Lymph % (Auto) 2.6 L [place] % (Auto) 7.3 Eos % (Auto) 0.0 Baso % (Auto) 0.1 Neut # (Auto) 12.39 H Lymph # (Auto) 0.36 L [place] # (Auto) 1.00 H Eos # (Auto) 0.00 Baso # (Auto) 0.01 PT INR PTT (Actin FS) D-Dimer 0.39 Sodium 134 L Potassium 4.2 Chloride 94 L Carbon Dioxide 28 Anion Gap 12 BUN 33 H Creatinine 1.3 H Estimated GFR/1.73 m2 55 BUN/Creatinine Ratio 25 Glucose 96 Calculated Osmolality 275 Calcium 9.0 Magnesium 2.1 Total Bilirubin 0.65 AST 12 ALT 10 Alkaline Phosphatase 62 Creatine Kinase 53 Troponin T Ety-H-Vqzeohrqbfy Pept Total Protein 7.2 Albumin 3.6 Globulin 3.6 Albumin/Globulin Ratio 1.0 03/16/17 03/16/17 03/16/17 12:39 12:39 12:39 WBC RBC Hgb Hct MCV MCH MCHC RDW Std Deviation Plt Count MPV Neut % (Auto) Lymph % (Auto) [place] % (Auto) Eos % (Auto) Baso % (Auto) Neut # (Auto) Lymph # (Auto) [place] # (Auto) Eos # (Auto) Baso # (Auto) PT 91.0 H INR 7.61 H* PTT (Actin FS) 79.1 H D-Dimer Sodium Potassium Chloride Carbon Dioxide Anion Gap BUN Creatinine Estimated GFR/1.73 m2 BUN/Creatinine Ratio Glucose Calculated Osmolality Calcium Magnesium Total Bilirubin AST ALT Alkaline Phosphatase Creatine Kinase Troponin T < 0.010 [place]-U-Eshpsvcgbwn Pept 1566 H Total Protein Albumin Globulin Albumin/Globulin Ratio Orders Category Date Time Status Cardiac Monitoring DIRECTED Care 03/16/17 13:04 Active Oxygen Therapy- ED Nursing DIRECTED Care 03/16/17 13:04 Active Saline Loc NOW Care 03/16/17 13:04 Active CHEST-2 VIEWS [RAD] Stat Exams 03/16/17 13:04 Completed A1C HGB W EST AVG GLUCOSE [CHEM] Stat Lab 03/16/17 15:05 Ordered ABG [RESP] Routine Lab 03/16/17 15:12 Ordered BLOOD CULTURE [BLDCUL] Stat Lab 03/16/17 13:07 Ordered CBC WITH ELECTRONIC DIFF [HEME] Stat Lab 03/16/17 12:39 Completed CK PROFILE [SP CHEM] Stat Lab 03/16/17 12:39 Completed COMPREHENSIVE METABOLIC PANEL [CHEM] Stat Lab 03/16/17 12:39 Completed D-DIMER [CHEM] Stat Lab 03/16/17 12:39 Completed MAGNESIUM [CHEM] Stat Lab 03/16/17 12:39 Completed PRO B-NATRIURETIC PEPTIDE Stat Lab 03/16/17 12:39 Completed PROTIME WITH INR [COAG] Stat Lab 03/16/17 12:39 Completed PTT [COAG] Stat Lab 03/16/17 12:39 Completed TROPONIN T Stat Lab 03/16/17 12:39 Completed Albuterol 2.5MG/Ipratrop 0.5MG [Duoneb (A & A)] Med 03/16/17 13:06 Discontinued 3 ml INH NOW ONE Aspirin Med 03/16/17 13:04 Discontinued 325 mg PO STAT STA Azithromycin 500 mg/Ns [Zithromax 500 mg/Ns] Med 03/16/17 14:45 Active 500 mg in 250 ml IV Q24H CefTRIAXONE 1 GM/NS [Rocephin 1 gm/Ns] Med 03/16/17 14:45 Active 1 gm in 50 ml IV Q24H Hydralazine [Apresoline] Med 03/16/17 15:24 Active 10 mg IV Q4H PRN PRN Labetalol [Trandate] Med 03/16/17 14:11 Discontinued 100 mg PO NOW ONE Phytonadione [Vitamin K] 10 mg Med 03/16/17 14:41 Discontinued 0.9% Sodium Chloride Inj [Ns] 50 ml IV NOW Aerosol Treatments Routine Oth 03/16/17 13:07 Completed Aerosol Treatments Stat Oth 03/16/17 13:07 Completed EKG [EKG] Stat Ther 03/16/17 13:04 Ordered Transfer/Admit Order [TRANSFER] Routine Transfer 03/16/17 15:05 Ordered pt's o2 saturation dropped to 88% on 3lpnc during exam Result Diagrams: 03/16/17 12:39 03/16/17 12:39 - EKG 1 Time of EKG reading by physician:: 12:50 EKG Read and Signed by:: Amada Bales EKG Interpretation (*Must complete 3 of following elements*): Abnormal Rate: 82 Rhythm: NSR [place]: normal QRS: RBB HI Interval: normal ST Wave: non-specific ST changes Comments: LAE - XRAY 1 XRAY Study: Chest Impression: Abnormal XRAY Interpretation: copd and fibrosis changes, LLL infiltrate improved but still there - CONSULTS/PCP/HOSPITALIST Notification #1 *Consult/PCP/Hospitalist*: ( rosa maria Braun) Time Discussed: 15:05 Consult Disposition: Admit Departure - Departure Time of Disposition Decision: 14:59 DIAGNOSIS: Lung infiltrate, Dyspnea, Elevated INR, COPD exacerbation Disposition: ADMITTED INPATIENT 09 Certified Medical Emergency: Emergent Condition: Stable - Critical Care Note This patient required my direct & personal management of CC.: No This chart was documented by the indicated scribe, (Mateus Hills, Scribe) and accurately reflects the services I performed and decisions made by me, Amada Bales MD, as attested by the provider's signature.
--- NOTE | 2017-03-16 16:04 | EKG Report ---
Test Performed on : 03/16/2017 12:30:05 PM Test Reason : Chest Pain Blood Pressure : / mmHG Vent. Rate : 082 BPM Atrial Rate : 082 BPM P-R Int : 202 ms QRS Dur : 164 ms QT Int : 424 ms P-R-T Axes : 050 096 023 degrees QTc Int : 495 ms Normal sinus rhythm. Possible Left atrial enlargement Right bundle branch block Septal infarct , age undetermined Abnormal ECG When compared with ECG of 16-DEC-2016 13:18, Septal infarct is now present Unconfirmed Result
[2017-03-16 16:14] LABS: HEMOGLOBIN A1C 5.3 % (4.8-6.0)
[2017-03-16] MEDS: ROCEPHIN 1 GM/NS 1 GM/50 ML IVPB IV SCH (17:29)
[2017-03-16 17:51] LABS: ALLEN TEST YES; BLOOD TYPE ARTERIAL; DRAW SITE R RADIAL; O2(CT) 16.1 mL/dL (15.0-23.0); PCO2(98.6) 46 mmHg (35-45); PO2(98.6) 62 mmHg (60-100); SAMPLE BLOOD; SAO2 94.2 % (95.0-100.0); THB 12.8 g/dL (11.5-17.4)
[2017-03-16 17:54] LABS: MODALITY CANNULA
[2017-03-16] MEDS: ZITHROMAX 500 MG/NS 500 MG/250 ML IVPB IV SCH (18:12)
[2017-03-16] MEDS ORDERED: TYLENOL PO PRN (18:58)
[2017-03-16] MEDS: XOPENEX NEB INH SCH ×2 (19:52→23:43)
[2017-03-16] MEDS: PULMICORT INH SCH (19:52)
[2017-03-16] MEDS: ATROVENT NEB INH SCH ×2 (19:52→23:42)
[2017-03-16] MEDS ORDERED: NORCO-10 PO SCH (21:00)
[2017-03-16 21:47] LABS: URINE CULTURE PL NEEDED? NO; URINE SOURCE CLEAN CATCH
[2017-03-16 21:49] LABS: BILIRUBIN URINE NEGATIVE (NEGATIVE); BLOOD URINE NEGATIVE (NEGATIVE); CLARITY CLEAR (CLEAR); COLOR YELLOW; GLUCOSE URINE NEGATIVE (NEGATIVE); LEUKOCYTES URINE NEGATIVE (NEGATIVE); NITRITE URINE NEGATIVE (NEGATIVE); PROTEIN URINE TRACE mg/dL (NEGATIVE); UROBILINOGEN URINE NORMAL
[2017-03-16 21:50] LABS: URINE EPITHELIAL CELLS <10 /HPF (<10); URINE RBC <10 /HPF (<10); URINE WBC <10 /HPF (<10)
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
[2017-03-17] MEDS ORDERED: DUONEB (A & A) INH PRN (02:28)
[2017-03-17] MEDS ORDERED: NORCO-10 PO PRN (02:47)
[2017-03-17 05:47] LABS: MANUAL DIFF NEEDED? NO
[2017-03-17 06:01] LABS: BASO% 0.1 % (0.0-0.8); EOS# 0.11 X1000 (0.0-0.7); EOS% 0.8 % (0.0-10.0); HEMATOCRIT 37.6 % (42.0-52.0); HEMOGLOBIN 11.7 g/dL (14.0-18.0); IMM GRAN# 0.05 X1000 (0.0-0.04); IMM GRAN% 0.4 % (0.0-0.5); LYMPH# 1.12 X1000 (1.2-3.4); LYMPH% 8.3 % (20.5-51.1); MCH 27.4 PG (27-31); MCHC 31.1 g/dL (33-37); MCV 88.1 FL (81-99); MONO# 1.93 X1000 (0.11-0.59); MONO% 14.3 % (1.7-9.3); MPV 10.1 FL (7.4-10.4); NEUT% 76.1 % (42.2-75.2); PLT 226 X1000 (130-400); RBC 4.27 XMIL (4.7-6.1)
[2017-03-17 06:15] LABS: AGAP 8; ALBUMIN 3.3 g/dL (3.5-5.0); ALKALINE PHOSPHATASE 49 U/L (32-122); BUN 26 mg/dL (8-22); CALCIUM 8.4 mg/dL (8.8-10.2); CHLORIDE 101 mmol/L (98-107); COSMO 279; GOT 11 U/L (10-34); GPT 11 U/L (10-44); POTASSIUM 4.2 mmol/L (3.5-5.1); SODIUM 137 mmol/L (136-145); TCO2 28 mmol/L (25-35); TOTAL PROTEIN 6.3 g/dL (6.3-8.3)
[2017-03-17 06:33] LABS: PROTIME 60.7 Seconds (12.1-15.5)
[2017-03-17 06:34] LABS: INR 7.27 (0.86-1.15)
[2017-03-17] MEDS ORDERED: VITAMIN K PO ONE (06:36)
--- NOTE | 2017-03-17 08:12 | PROGRESS NOTE ---
DATE: 03/17/2017 SUBJECTIVE: Patient notes that he is not been feeling any better but certainly not feeling any worse than last night. Denies any chest pain, palpitations currently. Still states that he is coughing, having some nonproductive cough. Did not sleep well. Still having shortness of breath. Denies any bleeding or bruising. OBJECTIVE: Vital signs: Temperature 98, pulse 80, respiratory rate 18, BP 154/78, saturation 99% on 3 L. General: Patient is awake, alert. He is in no distress. Pleasant to talk with. Neck: Supple. CV: Regular rate. Chest: Clear. Abdomen: Soft. Extremities: Moves all extremities. Neurologic: No changes. LABS: WBC is 13, hemoglobin and hematocrit are 11 and 37. INR 7.2. CMP improved with a BUN of 26, creatinine 1.3, albumin 3.3. ASSESSMENT: 1. Pneumonia. 2. Chronic obstructive pulmonary disease with fibrosis. 3. Hypercoagulable secondary to Coumadin. PLAN: We will stop the patient's Coumadin at the present time. We will continue to follow. We will restart his Lasix but at 40 mg daily. We will hold his aspirin. Continue his amiodarone. Certainly will hold spironolactone today as well as Coumadin until his INR returns back to normal. We will give him vitamin K this morning and follow. cc: Faraz Siddiqui MD
[2017-03-17] MEDS: PULMICORT INH SCH ×2 (08:33→19:18)
[2017-03-17] MEDS: DUONEB (A & A) INH SCH ×5 (08:33→23:05)
[2017-03-17] MEDS: LASIX PO SCH (08:49)
[2017-03-17] MEDS: MIRALAX PO SCH (08:49)
[2017-03-17] MEDS: COZAAR PO SCH (08:49)
[2017-03-17] MEDS: CORDARONE PO SCH (08:49)
[2017-03-17] MEDS: NORCO-10 PO PRN ×2 (08:50→18:42)
[2017-03-17] MEDS ORDERED: LASIX PO SCH (09:00)
[2017-03-17] MEDS ORDERED: CORDARONE PO SCH (09:00)
[2017-03-17] MEDS ORDERED: ASPIRIN PO SCH (09:00)
[2017-03-17] MEDS ORDERED: LIPITOR PO SCH ×2 (09:00→21:00)
[2017-03-17] MEDS: ZITHROMAX 500 MG/NS 500 MG/250 ML IVPB IV SCH (17:27)
[2017-03-17] MEDS: ROCEPHIN 1 GM/NS 1 GM/50 ML IVPB IV SCH (18:42)
[2017-03-17] MEDS: LIPITOR PO SCH (20:14)
[2017-03-17] MEDS: ALDACTONE PO SCH (20:14)
[2017-03-17] MEDS ORDERED: ALDACTONE PO SCH (21:00)
[2017-03-18] MEDS: NORCO-10 PO PRN ×4 (02:37→20:42)
[2017-03-18] MEDS: DUONEB (A & A) INH SCH ×6 (02:44→23:52)
[2017-03-18 06:06] LABS: HEMATOCRIT 37.5 % (42.0-52.0); HEMOGLOBIN 11.3 g/dL (14.0-18.0); MCH 26.8 PG (27-31); MCHC 30.1 g/dL (33-37); MCV 89.1 FL (81-99); MPV 10.5 FL (7.4-10.4); RBC 4.21 XMIL (4.7-6.1)
[2017-03-18 06:18] LABS: AGAP 7; ALBUMIN 3.1 g/dL (3.5-5.0); ALKALINE PHOSPHATASE 55 U/L (32-122); BUN 20 mg/dL (8-22); CALCIUM 8.4 mg/dL (8.8-10.2); CHLORIDE 101 mmol/L (98-107); COSMO 278; GOT 10 U/L (10-34); GPT 12 U/L (10-44); POTASSIUM 3.9 mmol/L (3.5-5.1); SODIUM 138 mmol/L (136-145); TCO2 30 mmol/L (25-35); TOTAL PROTEIN 6.1 g/dL (6.3-8.3)
[2017-03-18 07:41] LABS: INR 1.44 (0.86-1.15); PROTIME 17.8 Seconds (12.1-15.5)
[2017-03-18] MEDS: PULMICORT INH SCH ×2 (07:52→20:14)
[2017-03-18] MEDS ORDERED: ZITHROMAX 500 MG/NS 500 MG/250 ML IVPB IV SCH (07:52)
[2017-03-18] MEDS: CORDARONE PO SCH (08:09)
[2017-03-18] MEDS: COZAAR PO SCH (08:09)
[2017-03-18] MEDS: ASPIRIN EC PO SCH (08:09)
[2017-03-18] MEDS: LASIX PO SCH (08:09)
[2017-03-18] MEDS: MIRALAX PO SCH (08:10)
--- NOTE | 2017-03-18 08:26 | PROGRESS NOTE ---
DATE: 03/18/2017 SUBJECTIVE: Patient notes that he is feeling better. He is still having a cough. In fact, he is having a very productive cough at this point. PHYSICAL EXAMINATION: Vital Signs: Temperature 97, pulse 96, respiratory rate 18, BP 129/59, 165/70, saturation 98% on 3 L. General: Patient awake, alert, oriented. Currently in no real respiratory distress. He is pleasant to talk with. Neck: Supple. Cardiovascular: Regular rate. Chest: Clear. Abdomen: Soft. Extremities: Moves all extremities. Neurologic: No changes. ASSESSMENT: 1. Community-acquired pneumonia. Continue Rocephin. Change to p.o. azithromycin. We will check sputum culture. We will repeat a chest x-ray. 2. Supratherapeutic INR. His most recent INR is 1.4. Therefore, we will restart his home dose of Coumadin at 5 mg daily. We will restart his aspirin. We will use low-dose Lovenox, as he is currently on Coumadin due to atrial fibrillation, but has been in sinus rhythm recently. 3. Atrial fibrillation, stable. 4. Chronic obstructive pulmonary disease, stable. 5. Leukocytosis, resolved. WBC is down to 7. 6. Mwkfv-xy-pgobyam renal failure. BUN and creatinine both are down to 20 and 1.0, which is his baseline. 7. Volume depletion, resolved. 8. Mild protein calorie malnutrition. PLAN: Hopefully, the patient can be discharged home in the next day or 2. We will restart his Coumadin, check his INR in the a.m., recheck a chest x-ray today, change his antibiotics to p.o., and will follow. cc: Faraz Siddiqui MD
[2017-03-18] MEDS: ROCEPHIN 1 GM/NS 1 GM/50 ML IVPB IV SCH (14:29)
[2017-03-18] MEDS ORDERED: ZITHROMAX PO SCH (17:00)
[2017-03-18] MEDS: LIPITOR PO SCH (20:42)
[2017-03-18] MEDS: ALDACTONE PO SCH (20:44)
[2017-03-18] MEDS ORDERED: COUMADIN PO SCH (21:00)
[2017-03-19] MEDS: DUONEB (A & A) INH SCH ×3 (04:26→10:44)
[2017-03-19] MEDS: NORCO-10 PO PRN ×2 (05:26→09:02)
[2017-03-19 06:44] LABS: INR 1.12 (0.86-1.15); PROTIME 14.7 Seconds (12.1-15.5)
[2017-03-19] MEDS ORDERED: COUMADIN PO ONE (06:51)
[2017-03-19] MEDS: PULMICORT INH SCH (07:18)
--- NOTE | 2017-03-19 07:35 | PROGRESS NOTE ---
DATE: 03/19/2017 SUBJECTIVE: Patient notes he feels much better. He is asking to go home. Noted that his cough and congestion are improved. OBJECTIVE: Vital Signs: Temperature 98, pulse 89, respiratory rate 18, BP 147/58, saturation 98% on 3 L. General: Patient is awake, alert. He is sitting up in the bed watching television. He is in no respiratory distress. Pleasant to talk with. Neck: Supple. CV: Regular rate. Chest: Positive rhonchi throughout. No wheezing. No crackles appreciable. Abdomen: Soft. Extremities: Moves all extremities. Neurologic: No changes. LABS: INR is 14 and 1.12. ASSESSMENT: 1. Hypercoagulable state. Patient was given vitamin K. Currently his INR is 1.12. 2. Community-acquired pneumonia. Currently on azithromycin and Omnicef p.o. and improving. 3. Paroxysmal atrial fibrillation. Currently in sinus rhythm but remains on Coumadin. 4. Chronic obstructive pulmonary disease with mild exacerbation, improved. 5. Known coronary artery disease. 6. Hypertension. 7. Diastolic congestive heart failure. 8. Chronic tobacco abuse. PLAN: Certainly had hoped to send patient home today. His INR has continued to remain low which would be expected after his INR was 7 and he was given vitamin K x2. We will continue Lovenox and increase his Coumadin. We will attempt to send home if he can obtain Lovenox at home. Otherwise, certainly will need to stay in the hospital until his INR gets closer to 2. cc: Faraz Siddiqui MD
[2017-03-19 07:46] VITALS: BP 164/76
--- NOTE | 2017-03-19 08:47 | Diag Imaging Result Doc PS360 ---
EXAM: CHEST-2 VIEWS INDICATION: hypoxia TECHNIQUE: 2 views COMPARISON: 03/16/2017 FINDINGS: There is suggestion of COPD and fibrotic changes that are similar to the previous study. There is probably superimposed patchy infiltrate that is unchanged as well, mainly at the lower lung zones. No new consolidations are appreciated. Cardiac silhouette is stable. IMPRESSION: Stable chest. Electronically signed by Nirav Pires 03/19/2017 8:45 AM
[2017-03-19] MEDS: MIRALAX PO SCH (08:55)
[2017-03-19] MEDS: CORDARONE PO SCH (08:55)
[2017-03-19] MEDS: LASIX PO SCH (08:55)
[2017-03-19] MEDS: COZAAR PO SCH (08:55)
[2017-03-19] MEDS: ASPIRIN EC PO SCH (08:55)
[2017-03-19] MEDS ORDERED: LOVENOX SUBQ SCH (09:00)
[2017-03-19] MEDS ORDERED: OMNICEF PO SCH (09:00)
--- NOTE | 2017-03-19 16:07 | DISCHARGE SUMMARY ---
ADMISSION DATE: 03/16/2017 DISCHARGE DATE: 03/19/2017 PRIMARY CARE PHYSICIAN: Dr. Rick Jeffery. ADMISSION DIAGNOSES: 1. Community-acquired pneumonia. 2. Supratherapeutic INR. 3. Paroxysmal atrial fibrillation. 4. Chronic obstructive pulmonary disease not in exacerbation. 5. Coronary artery disease. 6. Hypertension. 7. Chronic diastolic congestive heart failure. DISCHARGE DIAGNOSES: 1. Community-acquired pneumonia. 2. Supratherapeutic INR has resolved; he is now subtherapeutic. 3. Paroxysmal atrial fibrillation. 4. Chronic obstructive pulmonary disease not in exacerbation. 5. Coronary artery disease. 6. Hypertension. 7. Chronic diastolic congestive heart failure. SUMMARY OF FINDINGS: This is a 67-year-old, male, who presents to his primary care physician's office on the day of arrival, had been on vacation in [place] over the last few days prior to arriving. He was placed on some oral steroids and amoxicillin for complaints of shortness of breath wheezing, cold and congestion with some dyspnea on exertion. When he presented to the office, his INR was checked and he was highly elevated. He sent the patient to the emergency room where his INR was 7.61 on admission. Chest x-ray showed a left lower lobe infiltrate with a white blood cell count of 13. So, he was admitted to the medical floor at [facility]. Placed on IV antibiotics. Was given a dose of vitamin K. His INR is now subtherapeutic at 1.12. His white count has returned to normal. His electrolytes are all within normal limits. He has been afebrile for greater than 24 hours. So, it is felt that he can safely be discharged home, but since he is subtherapeutic with his INR at this time with a history of his atrial fibrillation. We will bridge him with a prescription for Lovenox 40 mg 1 p.o. daily for 3 days. We will also give him a prescription for Zithromax 500 mg 1 p.o. daily for 5 days and Omnicef 300 mg 1 p.o. b.i.d. for 7 days #14 with no refills. He will continue his home medications of: 1. Amiodarone 200 mg p.o. daily. 2. Aspirin 81 mg p.o. daily. 3. Lasix 80 mg p.o. daily. 4. Cozaar 50 mg p.o. daily. 5. Spironolactone 25 mg p.o. at bedtime. 6. Coumadin 5 mg p.o. daily. 7. Ventolin 18 g as directed. 8. Continue his atorvastatin 40 mg p.o. daily. FOLLOWUP: He will need to have a PT and INR at his primary care physician's office on 03/24/2017, to evaluate if he needs to continue his Lovenox at that time or not. All discharge instructions have been reviewed with the patient, and he verbalizes understanding. TIME SPENT: 35 minutes. Dictated by SELIN Moreno for Faraz Siddiqui MD cc: SELIN Moreno MD Kenneth E. Mashburn, MD
== END 2017-03-19 14:31 | disposition home or self-care (01) ==
LOC: ED 12:28 → SUATTDRO 15:28 → EDIPHOLD 15:28 → P.MEDSURG 16:07
PROVIDERS: ATTEND Family Medicine

== ENCOUNTER 2018-11-10 11:44 | Inpatient (IN) ==
--- NOTE | 2018-11-10 12:15 | EKG Report ---
Test Performed on : 11/10/2018 12:02:09 PM Test Reason : AMS Blood Pressure : / mmHG Vent. Rate : 074 BPM Atrial Rate : 074 BPM P-R Int : 210 ms QRS Dur : 162 ms QT Int : 432 ms P-R-T Axes : 047 172 019 degrees QTc Int : 479 ms Sinus rhythm. with 1st degree AV block. Right bundle branch block , plus right ventricular hypertrophy Abnormal ECG When compared with ECG of 08-OCT-2018 06:53, premature ventricular complexes. are no longer present T wave inversion no longer evident in Anterior leads Unconfirmed Result
[2018-11-10 12:50] LABS: BASO# 0.02 X1000 (0.0-0.2); BASO% 0.3 % (0.0-0.8); EOS# 0.14 X1000 (0.0-0.7); EOS% 2.3 % (0.0-10.0); HEMATOCRIT 39.6 % (42.0-52.0); HEMOGLOBIN 11.4 g/dL (14.0-18.0); IMM GRAN# 0.02 X1000 (0.0-0.04); IMM GRAN% 0.3 % (0.0-0.5); LYMPH# 1.11 X1000 (1.2-3.4); LYMPH% 18.6 % (20.5-51.1); MCH 28.3 PG (27-31); MCHC 28.8 g/dL (33-37); MCV 98.3 FL (81-99); MONO# 0.86 X1000 (0.11-0.59); MONO% 14.4 % (1.7-9.3); MPV 10.1 FL (7.4-10.4); NEUT# 3.82 X1000 (1.4-6.5); NEUT% 64.1 % (42.2-75.2); PLT 233 X1000 (130-400); RBC 4.03 XMIL (4.7-6.1); WBC 5.97 X1000 (4.8-10.8)
[2018-11-10 12:56] LABS: ALLEN TEST NO; BE 7.5 mmoll (-3.0-3.0); BLOOD TYPE ARTERIAL; HCO3-(ACT) 30.6 mmoll (20.0-26.0); METHB 0.9 % (0.0-1.5); O2(CT) 14.4 mL/dL (15.0-23.0); O2HB 90.3 % (95.0-99.0); PO2(98.6) 64 mmHg (60-100); SAMPLE BLOOD; SAO2 96.2 % (95.0-100.0); THB 11.3 g/dL (11.5-17.4); pH(98.6) 7.39 (7.35-7.45)
--- NOTE | 2018-11-10 12:58 | Diag Imaging Result Doc PS360 ---
EXAM: CHEST-1 VIEW 11/10/2018 HISTORY: sob TECHNIQUE: AP portable upright at 1249 COMMENT: There is pleural fibrosis in both apices and costophrenic angles. There is ill-defined interstitial and alveolar opacity in both lower lung ortega. There is nodular opacity in the left apex. These findings were largely present on 10/12/2018 and 10/10/2018. IMPRESSION: Pulmonary and pleural fibrosis with possible chronic pulmonary edema. Electronically signed by Khari Francisco 11/10/2018 12:56 PM
[2018-11-10 12:59] LABS: MODALITY CANNULA
[2018-11-10 13:00] LABS: PCO2(98.6) 56 mmHg (35-45)
[2018-11-10 13:00] LABS: ALB/GLOB RATIO 1.8; ALBUMIN 3.7 g/dL (3.5-5.0); CALCIUM 8.9 mg/dL (8.8-10.2); CREATININE 1.3 mg/dL (0.7-1.2); POTASSIUM 4.6 mmol/L (3.5-5.1); TOTAL BILIRUBIN 0.4 mg/dL (0.20-1.00); TOTAL PROTEIN 5.8 g/dL (6.3-8.3)
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
[2018-11-10 13:43] LABS: URINE SOURCE CLEAN CATCH
[2018-11-10 13:47] LABS: BILIRUBIN URINE NEGATIVE (NEGATIVE); BLOOD URINE NEGATIVE (NEGATIVE); COLOR YELLOW; GLUCOSE URINE NEGATIVE (NEGATIVE); KETONE URINE NEGATIVE (NEGATIVE); LEUKOCYTES URINE NEGATIVE (NEGATIVE); NITRITE URINE NEGATIVE (NEGATIVE); PROTEIN URINE NEGATIVE (NEGATIVE); SP GRAVITY URINE 1.002; TURBIDITY URINE CLEAR (CLEAR); UROBILINOGEN URINE NORMAL (NORMAL)
[2018-11-10 13:49] LABS: UR EPITHELIAL CELLS <10 /HPF (<10); URINE BACTERIA NEGATIVE /HPF; URINE RBC <10 /HPF (<10); URINE WBC <10 /HPF (<10)
[2018-11-10] MEDS ORDERED: TYLENOL PO PRN (14:06)
[2018-11-10] MEDS ORDERED: ZOFRAN IV PRN (14:06)
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
[2018-11-10 14:23] LABS: INR 3.22; PROTIME 35.2 Seconds (11.0-16.0)
[2018-11-10 14:24] LABS: PTT 70.3 Seconds (22.3-41.8)
[2018-11-10] MEDS: DUONEB (A & A) INH SCH ×2 (16:10→21:20)
[2018-11-10] MEDS: NORCO-10 PO PRN ×2 (16:52→20:37)
[2018-11-10] MEDS: COREG PO SCH (20:37)
[2018-11-10] MEDS: COUMADIN PO SCH (20:37)
[2018-11-10] MEDS: ALDACTONE PO SCH (20:37)
[2018-11-11] MEDS: DUONEB (A & A) INH SCH ×5 (03:03→23:17)
[2018-11-11 05:28] LABS: ALLEN TEST YES; BE 5.7 mmoll (-3.0-3.0); BLOOD TYPE ARTERIAL; HCO3-(ACT) 29.2 mmoll (20.0-26.0); METHB 1.3 % (0.0-1.5); O2(CT) 14.1 mL/dL (15.0-23.0); O2HB 90.9 % (95.0-99.0); PO2(98.6) 73 mmHg (60-100); SAMPLE BLOOD; SAO2 95.4 % (95.0-100.0); pH(98.6) 7.28 (7.35-7.45)
[2018-11-11] MEDS: NORCO-10 PO PRN ×4 (05:31→21:45)
[2018-11-11 05:48] LABS: MODALITY CANNULA; PCO2(98.6) 73 mmHg (35-45)
[2018-11-11] MEDS: SPIRIVA INH SCH (07:15)
[2018-11-11 07:18] LABS: BASO# 0.02 X1000 (0.0-0.2); BASO% 0.4 % (0.0-0.8); EOS# 0.18 X1000 (0.0-0.7); EOS% 3.5 % (0.0-10.0); HEMATOCRIT 39.8 % (42.0-52.0); HEMOGLOBIN 11.6 g/dL (14.0-18.0); LYMPH# 1.12 X1000 (1.2-3.4); LYMPH% 21.9 % (20.5-51.1); MCH 28.8 PG (27-31); MCHC 29.1 g/dL (33-37); MCV 98.8 FL (81-99); MONO# 0.78 X1000 (0.11-0.59); MONO% 15.3 % (1.7-9.3); NEUT# 3.01 X1000 (1.4-6.5); NEUT% 58.9 % (42.2-75.2); PLT 246 X1000 (130-400); RBC 4.03 XMIL (4.7-6.1); RDW 15.1 % (11.5-14.5); WBC 5.11 X1000 (4.8-10.8)
[2018-11-11 07:27] LABS: INR 3.23; PROTIME 35.3 Seconds (11.0-16.0)
[2018-11-11 07:29] LABS: PTT 79.9 Seconds (22.3-41.8)
[2018-11-11 07:44] LABS: ALB/GLOB RATIO 1.4; ALBUMIN 3.8 g/dL (3.5-5.0); CALCIUM 8.7 mg/dL (8.8-10.2); CREATININE 1.2 mg/dL (0.7-1.2); MAGNESIUM 2.2 mg/dL (1.5-2.7); TOTAL BILIRUBIN 0.43 mg/dL (0.20-1.00); TOTAL PROTEIN 6.6 g/dL (6.3-8.3)
[2018-11-11 07:58] LABS: FREE T4 1.45 ng/dL (0.93-1.70); TSH 2.77 uIUmL (0.27-4.20)
--- NOTE | 2018-11-11 08:04 | EKG Report ---
Test Performed on : 11/11/2018 07:48:14 AM Test Reason : chest pain Blood Pressure : / mmHG Vent. Rate : 088 BPM Atrial Rate : 088 BPM P-R Int : 200 ms QRS Dur : 164 ms QT Int : 414 ms P-R-T Axes : 037 166 016 degrees QTc Int : 500 ms Sinus rhythm. with premature atrial complexes. Possible Left atrial enlargement Right bundle branch block Abnormal ECG When compared with ECG of 10-NOV-2018 12:02, (Unconfirmed) premature atrial complexes. are now present Confirmed by Yossi CASTANO, Santana Cameron ([id number]) on 11/13/2018 10:26:30 AM
[2018-11-11] MEDS: COZAAR PO SCH (08:47)
[2018-11-11] MEDS: MIRALAX PO SCH (08:47)
[2018-11-11] MEDS: LIPITOR PO SCH (08:48)
[2018-11-11] MEDS: COREG PO SCH ×2 (08:48→21:46)
[2018-11-11] MEDS: ASPIRIN EC PO SCH (08:48)
[2018-11-11] MEDS: CORDARONE PO SCH (08:48)
[2018-11-11] MEDS: LASIX PO SCH (08:48)
--- NOTE | 2018-11-11 10:56 | Diag Imaging Result Doc PS360 ---
EXAM: CHEST-2 VIEWS 11/11/2018 HISTORY: copd TECHNIQUE: PA and lateral chest COMMENT: Compared to the previous study of 11/10/2018 there is increasing alveolar opacification in the right upper lobe and right lower lobe. IMPRESSION: Worsening pulmonary edema and/or pneumonia. Electronically signed by Khari Francisco 11/11/2018 10:54 AM
[2018-11-11] MEDS ORDERED: LASIX IV ONE (17:24)
[2018-11-11] MEDS: CYANOCOBALAMIN IM SCH (18:28)
[2018-11-11] MEDS ORDERED: BENADRYL PO PRN (18:36)
--- NOTE | 2018-11-11 19:43 | PROGRESS NOTE ---
DATE: 11/11/2018 SUBJECTIVE: He is a patient of Dr. Rick Jeffery. Feels like his breathing is better. His is not convinced he is doing much better today. He has a history of known coronary artery disease, COPD on 5 L O2 at home, hypertension, paroxysmal atrial fibrillation on Coumadin, chronic pain syndrome, severe peripheral artery disease, chronic mesenteric artery insufficiency and questionable Alzheimer dementia. So, he was admitted with questionable syncopal/presyncopal episode, chronic hypoxemic, chronic obstructive pulmonary disease. He has got a portable O2 tank that probably was not working. Went out to eat with his buddies and had a spell. He seems to think he is breathing a little better. On his chest x-ray there was worsening pulmonary edema and so he is on Lasix 40 mg a day. I may give him an extra Lasix tonight. I will give him 40 mg IV, continue his breathing treatments. We will check another chest x-ray in the morning as well. His lab this morning was really pretty unremarkable. His folate is a little low, his B12 was low as well. So, we will give him some B12 and folate. cc: Shailesh Robins MD MTDD
[2018-11-11] MEDS: FOLIC ACID PO SCH (21:45)
[2018-11-11] MEDS: COUMADIN PO SCH (21:46)
[2018-11-11] MEDS: ALDACTONE PO SCH (21:50)
[2018-11-12] MEDS: DUONEB (A & A) INH SCH ×3 (03:05→11:18)
[2018-11-12] MEDS: NORCO-10 PO PRN (07:39)
[2018-11-12 08:10] VITALS: BP 129/65
[2018-11-12 08:37] LABS: AGAP 8; BUN 16 mg/dL (8-22); CALCIUM 8.8 mg/dL (8.8-10.2); CHLORIDE 98 mmol/L (98-107); COSMO 279; CREATININE 0.9 mg/dL (0.7-1.2); ESTIMATED GFR > 60; GLUCOSE 99 mg/dL (70-104); POTASSIUM 4.3 mmol/L (3.5-5.1); SODIUM 139 mmol/L (136-145); TCO2 33 mmol/L (25-35)
--- NOTE | 2018-11-12 08:53 | Diag Imaging Result Doc PS360 ---
CHEST-2 VIEWS - 11/12/2018 INDICATION: pulmonary venous HTN COMPARISON: 11/11/2018 FINDINGS: Stable cardiomegaly and surgical changes to the heart. Stable pulmonary vascular congestion. There has been significant improvement in the pulmonary edema and right middle lobe opacification. There are trace pleural effusions. IMPRESSION: Significant improvement from prior. Electronically signed by [place] 11/12/2018 8:50 AM
[2018-11-12] MEDS: COZAAR PO SCH (09:51)
[2018-11-12] MEDS: LIPITOR PO SCH (09:51)
[2018-11-12] MEDS: LASIX PO SCH (09:51)
[2018-11-12] MEDS: MIRALAX PO SCH (09:51)
[2018-11-12] MEDS: CORDARONE PO SCH (09:51)
[2018-11-12] MEDS: COREG PO SCH (09:51)
[2018-11-12] MEDS: ASPIRIN EC PO SCH (09:51)
[2018-11-12] MEDS: FOLIC ACID PO SCH (09:52)
[2018-11-12] MEDS: CYANOCOBALAMIN IM SCH (09:52)
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
[2018-11-12] MEDS: SPIRIVA INH SCH (11:40)
== END 2018-11-12 12:36 | disposition home or self-care (01) | DRG 191 ==
LOC: SUPCPDRO → ED 11:44 → 3N 14:36
PROVIDERS: ATTEND Emergency Medicine
CPT/HCPCS: 71010; 71020; 71045; 71046; 80048; 80053; 81001; 82550; 82607; 82746; 82805; 82948; 83735; 83880; 84439; 84443; 84484; 85025; 85610; 85730; 93005; 93010; 94640; 94761; 99285; 99291; A9270; J1940; J3420; XXXXX